=== PATIENT | female | born 1945 | race Caucasian/White ===

== ENCOUNTER 2018-09-06 11:50 | Inpatient (IN) | payer MEDICARE, MEDICAID ==
[~2018-09-06] VITALS: Ht 154.9 cm; Wt 69.9 kg
[~2018-09-06 11:50] MED LIST: ALEN70TA3 PO; ALPR0.5T PO; AMLO10TA80 PO; ASPI-1159 PO; ATEN-42 PO; ATOR20TA65 PO; BUSP-29 PO; FLUO60TA PO; FLUT1DIS6 IH; NORT50CA PO; OMEP40CA34 PO; TIOT18CA3 IH; TOPI50TA PO
[2018-09-06] MEDS ORDERED: ONDANSETRON HCL 4MG/2ML INJ IV STA (12:50)
[2018-09-06] MEDS ORDERED: MORPHINE SULFATE 4 MG/ML CPJ (NOT FOR IM USE) IV STA (12:50)
[2018-09-06] MEDS ORDERED: SODIUM CHLORIDE 0.9% 1,000 ML IV ONE (12:50)
[2018-09-06 13:19] LABS: BASOPHILS % 0.5 % (0.0-2.0); EOSINOPHILS % 2.7 % (0.0-5.0); HEMATOCRIT. 36.8 % (36.0-48.0); HEMOGLOBIN. 11.9 g/dL (12.0-16.0); MEAN CORPUSCULAR HEMOGLOBIN 29.6 pg (28.0-32.0); MEAN CORPUSCULAR VOLUME 91.3 fL (81.0-99.0); MEAN PLATELET VOLUME 7.7 fl (7.4-10.4); NEUTROPHILS % 74.8 % (40.0-76.0); PLATELET 391 x1000/uL (130-400); RED BLOOD CELL COUNT 4.03 mill/uL (4.2-5.4); RED CELL DISTRIBUTION WIDTH 14.7 % (11.6-14.6)
[2018-09-06 13:23] LABS: CHLORIDE 102 mEq/L (98-107)
[2018-09-06] MEDS: ALBUTEROL (0.083%) 2.5MG/3ML NEB HHN STA ×2 (15:10→15:20)
[2018-09-06] MEDS ORDERED: METHYLPREDNISOLONE SOD SUCC 125 MG/2 ML VIAL IV STA (15:19)
[2018-09-06] MEDS ORDERED: IPRATROPIUM BROMIDE (0.02%) 0.5MG/2.5ML NEB HHN STA (15:19)
[2018-09-06] MEDS ORDERED: KETOROLAC 15MG/ML VIAL IV ONE (15:30)
[2018-09-06] MEDS ORDERED: FUROSEMIDE 20MG/2ML VIAL IVP NR (16:15)
[2018-09-06] MEDS ORDERED: IPRATROPIUM/ALBUTEROL 0.5-3(2.5)MG/3ML NEB HHN PRN (16:30)
[2018-09-06] MEDS ORDERED: MAGNESIUM/ALUMINUM HYDROXIDE/SIMETHICONE 30ML UDC PO PRN (18:30)
[2018-09-06] MEDS ORDERED: CLONIDINE 0.1MG TABLET PO PRN (18:30)
[2018-09-06] MEDS ORDERED: ACETAMINOPHEN 325MG TABLET PO PRN (18:30)
[2018-09-06] MEDS ORDERED: DOCUSATE SODIUM 100MG CAPSULE PO PRN (18:30)
[2018-09-06 19:17] LABS: CLARITY URINE CLEAR (CLEAR); COLOR URINE YELLOW (YELLOW); KETONES URINE NEGATIVE (NEGATIVE); LEUKOCYTE ESTERASE URINE NEGATIVE (NEGATIVE); NITRITE URINE NEGATIVE (NEGATIVE); OCCULT BLOOD URINE NEGATIVE (NEGATIVE); PROTEIN URINE NEGATIVE (NEGATIVE); UROBILINOGEN URINE 0.2 E.U./dL (0.2-1.0)
[2018-09-06] MEDS: HYDROCODONE/ACETAMINOPHEN 5/325MG TABLET PO PRN (21:43)
[2018-09-07] MEDS: HYDROCODONE/APAP 7.5/325MG 1 TAB TABLET PO PRN ×2 (01:30→16:40)
[2018-09-07 03:10] VITALS: BP 138/76
[2018-09-07 04:00] VITALS: BP 138/76
[2018-09-07] MEDS ORDERED: MONT10TA24 PO (04:45)
[2018-09-07] MEDS ORDERED: ARFO15VI2 IH (04:51)
[2018-09-07] MEDS ORDERED: ALBU18HF2 IH (04:51)
[2018-09-07] MEDS ORDERED: ALPR1TAB2 PO (04:51)
[2018-09-07 07:56] LABS: HEMATOCRIT. 34.4 % (36.0-48.0); HEMOGLOBIN. 11.4 g/dL (12.0-16.0); MEAN CORPUSCULAR HEMOGLOBIN 29.9 pg (28.0-32.0); MEAN CORPUSCULAR VOLUME 90.7 fL (81.0-99.0); MEAN PLATELET VOLUME 7.5 fl (7.4-10.4); PLATELET 387 x1000/uL (130-400); RED CELL DISTRIBUTION WIDTH 14.2 % (11.6-14.6)
[2018-09-07 08:00] VITALS: BP 155/91
[2018-09-07 08:03] LABS: CHLORIDE 102 mEq/L (98-107)
[2018-09-07] MEDS ORDERED: MEDICATION NOT ON FORMULARY EA (Alprazolam (Xanax) 0.5 MG) PO PRN (09:30)
[2018-09-07] MEDS ORDERED: BUSPIRONE HCL 5 MG PO SCH (09:30)
[2018-09-07] MEDS ORDERED: ARFORMOTEROL TARTRATE 15MCG/2ML NEB NEB SCH (09:30)
[2018-09-07] MEDS ORDERED: MEDICATION NOT ON FORMULARY EA (Omeprazole 40 MG) PO SCH (09:30)
[2018-09-07] MEDS ORDERED: TOPIRAMATE PO SCH (09:30)
[2018-09-07] MEDS ORDERED: FLUOXETINE HCL 60 MG PO SCH (09:30)
[2018-09-07] MEDS ORDERED: KETOROLAC 30MG/ML VIAL IV PRN (09:45)
[2018-09-07] MEDS ORDERED: ALPRAZOLAM 0.5 MG TABLET PO PRN (10:15)
[2018-09-07] MEDS: BUSPIRONE HCL 5MG TABLET PO SCH ×2 (10:18→17:11)
[2018-09-07] MEDS: AMLODIPINE 10MG TABLET PO SCH (10:18)
[2018-09-07] MEDS: FLUOXETINE HCL 20MG CAPSULE PO SCH (10:18)
[2018-09-07] MEDS: OMEPRAZOLE 20MG CAPSULE EXTENDED RELEASE PO SCH ×2 (10:24→17:11)
[2018-09-07 11:32] LABS: PLATELET ESTIMATE NORMAL
[2018-09-07 12:00] VITALS: BP 123/73
[2018-09-07] MEDS: TOPIRAMATE 25MG TABLET PO SCH ×2 (12:31→17:11)
[2018-09-07] MEDS: KETOROLAC 15MG/ML VIAL IV PRN ×2 (12:34→22:00)
[2018-09-07 16:00] VITALS: BP 120/50
[2018-09-07] MEDS: IPRATROPIUM/ALBUTEROL 0.5-3(2.5)MG/3ML NEB HHN SCH ×2 (16:54→21:01)
[2018-09-07] MEDS: BUDESONIDE 0.5MG/2ML NEB HHN SCH ×2 (16:54→21:00)
[2018-09-07 20:00] VITALS: BP 125/71
[2018-09-07] MEDS ORDERED: ASPIRIN 81MG TABLET PO SCH (21:00)
[2018-09-07] MEDS ORDERED: NORTRIPTYLINE HCL 25MG CAPSULE PO SCH (21:00)
[2018-09-07] MEDS ORDERED: ATORVASTATIN CALCIUM 20MG TABLET PO SCH (21:00)
[2018-09-07] MEDS ORDERED: MONTELUKAST SODIUM 10MG TABLET PO SCH (21:00)
[2018-09-07] MEDS ORDERED: MEDICATION NOT ON FORMULARY EA (Atenolol 25 MG) PO SCH (21:00)
[2018-09-07] MEDS ORDERED: MEDICATION NOT ON FORMULARY EA (Nortriptyline Hcl 50 MG) PO SCH (21:00)
[2018-09-07] MEDS ORDERED: ATENOLOL 25MG TABLET PO SCH (21:00)
[2018-09-08] VITALS: BP 136/73
[2018-09-08] MEDS: IPRATROPIUM/ALBUTEROL 0.5-3(2.5)MG/3ML NEB HHN SCH ×3 (01:50→14:54)
[2018-09-08 04:00] VITALS: BP 130/72
[2018-09-08] MEDS: OMEPRAZOLE 20MG CAPSULE EXTENDED RELEASE PO SCH ×2 (07:56→18:18)
[2018-09-08 08:00] VITALS: BP 128/70
[2018-09-08 08:05] LABS: HEMATOCRIT. 32.1 % (36.0-48.0); HEMOGLOBIN. 10.4 g/dL (12.0-16.0); MEAN CORPUSCULAR HEMOGLOBIN 29.4 pg (28.0-32.0); MEAN CORPUSCULAR VOLUME 90.4 fL (81.0-99.0); MEAN PLATELET VOLUME 7.6 fl (7.4-10.4); PLATELET 390 x1000/uL (130-400); RED BLOOD CELL COUNT 3.55 mill/uL (4.2-5.4); RED CELL DISTRIBUTION WIDTH 14.4 % (11.6-14.6)
[2018-09-08 08:06] LABS: CHLORIDE 103 mEq/L (98-107)
[2018-09-08 08:14] LABS: PHOSPHORUS 3.3 mg/dL (2.5-4.9)
[2018-09-08] MEDS: BUDESONIDE 0.5MG/2ML NEB HHN SCH (08:49)
[2018-09-08] MEDS: AMLODIPINE 10MG TABLET PO SCH (09:16)
[2018-09-08] MEDS: TOPIRAMATE 25MG TABLET PO SCH ×2 (09:16→18:18)
[2018-09-08] MEDS: FLUOXETINE HCL 20MG CAPSULE PO SCH (09:16)
[2018-09-08] MEDS: KETOROLAC 15MG/ML VIAL IV PRN (09:17)
[2018-09-08] MEDS: BUSPIRONE HCL 5MG TABLET PO SCH ×2 (09:17→18:21)
[2018-09-08 10:35] LABS: PLATELET ESTIMATE NORMAL
[2018-09-08 12:00] VITALS: BP 122/68
[2018-09-08] MEDS: HYDROCODONE/ACETAMINOPHEN 5/325MG TABLET PO PRN (12:58)
[2018-09-08 16:00] VITALS: BP 99/60
== END 2018-09-08 19:50 | DRG 189 ==
LOC: ER 12:17 → 5WST 16:01 → EDBEDREQ 16:05 → EDBEDREQTM 16:05 → ENRESERV 22:28
PROVIDERS: ADMIT Family Medicine Adult Medicine; ATTEND Family Medicine Adult Medicine
DX: J96.00 Acute respiratory failure, unspecified whether with hypoxia or hypercapnia (principal); J44.1 Chronic obstructive pulmonary disease with (acute) exacerbation; S82.109A Unspecified fracture of upper end of unspecified tibia, initial encounter for closed fracture; J45.901 Unspecified asthma with (acute) exacerbation; I10 Essential (primary) hypertension; S60.222A Contusion of left hand, initial encounter; S80.02XA Contusion of left knee, initial encounter; E87.5 Hyperkalemia; E78.5 Hyperlipidemia, unspecified; D64.9 Anemia, unspecified; E78.00 Pure hypercholesterolemia, unspecified; F32.9 Major depressive disorder, single episode, unspecified; M19.90 Unspecified osteoarthritis, unspecified site; Z83.3 Family history of diabetes mellitus; Z79.82 Long term (current) use of aspirin; W18.09XA Striking against other object with subsequent fall, initial encounter; Z88.0 Allergy status to penicillin
CPT/HCPCS: 36415; 71045; 73110; 73130; 73562; 73721; 80048; 83735; 83880; 84100; 84484; 93005; 93970; 94640; 96374; 96375; 97116; 97162; 97166; 99285; J1885; J1940; J2270; J2405; J2930; J7030; J7611; J7620; J7626; L1830

== ENCOUNTER 2018-09-08 19:55 | Inpatient (IN) | payer MEDICARE, MEDICAID ==
[~2018-09-08] VITALS: Ht 154.9 cm; Wt 68.7 kg
[~2018-09-08 19:55] MED LIST changes: +ALBU18HF2 IH; -ALEN70TA3 PO; +ALPR1TAB2 PO; +ARFO15VI2 IH; +MONT10TA24 PO; -TIOT18CA3 IH
[2018-09-08 20:00] VITALS: BP 117/66
[2018-09-08 20:10] VITALS: BP 117/66
[2018-09-08 21:00] VITALS: BP 117/66
[2018-09-08] MEDS ORDERED: HYDROCODONE/APAP 7.5/325MG 1 TAB TABLET PO PRN (21:30)
[2018-09-08] MEDS ORDERED: DOCUSATE SODIUM 100MG CAPSULE PO PRN (21:30)
[2018-09-08] MEDS ORDERED: MAGNESIUM/ALUMINUM HYDROXIDE/SIMETHICONE 30ML UDC PO PRN (21:30)
[2018-09-08] MEDS ORDERED: EXCEDRIN PO PRN (21:30)
[2018-09-08] MEDS ORDERED: HYDROCODONE/ACETAMINOPHEN 5/325MG TABLET PO PRN (21:30)
[2018-09-08] MEDS ORDERED: CLONIDINE 0.1MG TABLET PO PRN (21:30)
[2018-09-08] MEDS ORDERED: ALPRAZOLAM 0.5 MG TABLET PO PRN (21:30)
[2018-09-08] MEDS: IPRATROPIUM/ALBUTEROL 0.5-3(2.5)MG/3ML NEB HHN PRN (22:11)
[2018-09-08] MEDS: ATORVASTATIN CALCIUM 20MG TABLET PO SCH (22:28)
[2018-09-08] MEDS: MONTELUKAST SODIUM 10MG TABLET PO SCH (22:28)
[2018-09-08] MEDS: ATENOLOL 25MG TABLET PO SCH (22:33)
[2018-09-08] MEDS: ASPIRIN 81MG TABLET PO SCH (23:24)
[2018-09-08] MEDS: NORTRIPTYLINE HCL 25MG CAPSULE PO SCH (23:24)
[2018-09-09] MEDS: KETOROLAC 15MG/ML VIAL IV PRN ×3 (00:50→21:59)
[2018-09-09] MEDS: IPRATROPIUM/ALBUTEROL 0.5-3(2.5)MG/3ML NEB HHN SCH ×4 (03:58→21:27)
[2018-09-09 06:00] LABS: CHLORIDE 101 mEq/L (98-107)
[2018-09-09 06:10] LABS: HEMATOCRIT. 29.3 % (36.0-48.0); HEMOGLOBIN. 9.5 g/dL (12.0-16.0); MEAN CORPUSCULAR VOLUME 89.9 fL (81.0-99.0); MEAN PLATELET VOLUME 7.4 fl (7.4-10.4); PLATELET 403 x1000/uL (130-400); RED BLOOD CELL COUNT 3.26 mill/uL (4.2-5.4); RED CELL DISTRIBUTION WIDTH 14.5 % (11.6-14.6)
[2018-09-09] MEDS: ARFORMOTEROL TARTRATE 15MCG/2ML NEB NEB SCH ×2 (07:32→21:27)
[2018-09-09] MEDS: BUDESONIDE 0.5MG/2ML NEB HHN SCH ×2 (07:33→21:27)
[2018-09-09 08:12] VITALS: BP 138/75
[2018-09-09] MEDS: TOPIRAMATE 25MG TABLET PO SCH ×2 (09:02→17:21)
[2018-09-09] MEDS: BUSPIRONE HCL 5MG TABLET PO SCH ×2 (09:02→17:21)
[2018-09-09] MEDS: FLUOXETINE HCL 20MG CAPSULE PO SCH (09:03)
[2018-09-09] MEDS: OMEPRAZOLE 20MG CAPSULE EXTENDED RELEASE PO SCH ×2 (09:03→17:21)
[2018-09-09] MEDS: AMLODIPINE 10MG TABLET PO SCH (09:04)
[2018-09-09] MEDS: ASPIRIN PO PRN (13:43)
[2018-09-09] MEDS: CAFFEINE 65 MG PO PRN (13:43)
[2018-09-09] MEDS: ACETAMINOPHEN PO PRN (13:43)
[2018-09-09] MEDS: [UNRECOGNIZED DRUG - OTHER] PO PRN (13:43)
[2018-09-09] MEDS ORDERED: BISACODYL 10MG SUPP PR PRN (13:45)
[2018-09-09] MEDS: LACTULOSE 20G/30ML UDC PO SCH ×3 (14:58→21:00)
[2018-09-09] MEDS: DOCUSATE SODIUM 100MG CAPSULE PO SCH (17:21)
[2018-09-09 20:00] VITALS: BP 123/82
[2018-09-09] MEDS: POLYETHYLENE GLYCOL 3350 (17GM) 1 DOSE PACK PO SCH (21:00)
[2018-09-09] MEDS: NORTRIPTYLINE HCL 25MG CAPSULE PO SCH (21:59)
[2018-09-09] MEDS: ATORVASTATIN CALCIUM 20MG TABLET PO SCH (21:59)
[2018-09-09] MEDS: MONTELUKAST SODIUM 10MG TABLET PO SCH (22:00)
[2018-09-09] MEDS: ASPIRIN 81MG TABLET PO SCH (22:00)
[2018-09-09] MEDS: ALPRAZOLAM 0.5 MG TABLET PO PRN (23:16)
[2018-09-09] MEDS: ATENOLOL 25MG TABLET PO SCH (23:17)
[2018-09-10] MEDS: IPRATROPIUM/ALBUTEROL 0.5-3(2.5)MG/3ML NEB HHN SCH ×3 (02:02→14:09)
[2018-09-10] MEDS: KETOROLAC 15MG/ML VIAL IV PRN ×2 (06:30→17:15)
[2018-09-10] MEDS: ARFORMOTEROL TARTRATE 15MCG/2ML NEB NEB SCH ×2 (07:54→21:00)
[2018-09-10] MEDS: BUDESONIDE 0.5MG/2ML NEB HHN SCH (07:54)
[2018-09-10 08:03] LABS: CHLORIDE 102 mEq/L (98-107)
[2018-09-10 08:09] VITALS: BP 135/63
[2018-09-10] MEDS: TOPIRAMATE 25MG TABLET PO SCH ×2 (08:50→16:57)
[2018-09-10] MEDS: AMLODIPINE 10MG TABLET PO SCH (08:50)
[2018-09-10] MEDS: FLUOXETINE HCL 20MG CAPSULE PO SCH (08:50)
[2018-09-10] MEDS: BUSPIRONE HCL 5MG TABLET PO SCH ×2 (08:50→16:57)
[2018-09-10] MEDS: OMEPRAZOLE 20MG CAPSULE EXTENDED RELEASE PO SCH ×2 (08:51→16:58)
[2018-09-10] MEDS: DOCUSATE SODIUM 100MG CAPSULE PO SCH ×2 (08:51→16:58)
[2018-09-10 13:17] LABS: PLATELET ESTIMATE NORMAL
[2018-09-10 18:50] LABS: CLARITY URINE CLEAR (CLEAR); COLOR URINE YELLOW (YELLOW); KETONES URINE NEGATIVE (NEGATIVE); LEUKOCYTE ESTERASE URINE NEGATIVE (NEGATIVE); NITRITE URINE NEGATIVE (NEGATIVE); OCCULT BLOOD URINE NEGATIVE (NEGATIVE); PH URINE 6.5 (4.5-8.0); PROTEIN URINE NEGATIVE (NEGATIVE); SPECIFIC GRAVITY URINE 1.009 (1.005-1.030); UROBILINOGEN URINE 0.2 E.U./dL (0.2-1.0)
[2018-09-10 20:00] VITALS: BP 116/68
[2018-09-10] MEDS: POLYETHYLENE GLYCOL 3350 (17GM) 1 DOSE PACK PO SCH (21:00)
[2018-09-10] MEDS: MONTELUKAST SODIUM 10MG TABLET PO SCH (21:43)
[2018-09-10] MEDS: ATENOLOL 25MG TABLET PO SCH (21:43)
[2018-09-10] MEDS: NORTRIPTYLINE HCL 25MG CAPSULE PO SCH (21:43)
[2018-09-10] MEDS: ASPIRIN 81MG TABLET PO SCH (21:43)
[2018-09-10] MEDS: ATORVASTATIN CALCIUM 20MG TABLET PO SCH (21:43)
[2018-09-10] MEDS: ALPRAZOLAM 0.5 MG TABLET PO PRN (23:46)
[2018-09-11] MEDS: IPRATROPIUM/ALBUTEROL 0.5-3(2.5)MG/3ML NEB HHN SCH ×5 (02:34→21:35)
[2018-09-11] MEDS: BUDESONIDE 0.5MG/2ML NEB HHN SCH ×2 (02:38→21:35)
[2018-09-11] MEDS: KETOROLAC 15MG/ML VIAL IV PRN ×3 (03:07→17:00)
[2018-09-11 06:38] LABS: HEMATOCRIT. 29.7 % (36.0-48.0); MEAN CORPUSCULAR HEMOGLOBIN 30.2 pg (28.0-32.0); MEAN CORPUSCULAR VOLUME 89.7 fL (81.0-99.0); MEAN PLATELET VOLUME 7.1 fl (7.4-10.4); PLATELET 478 x1000/uL (130-400); RED BLOOD CELL COUNT 3.31 mill/uL (4.2-5.4); RED CELL DISTRIBUTION WIDTH 14.4 % (11.6-14.6)
[2018-09-11 06:56] LABS: CHLORIDE 101 mEq/L (98-107)
[2018-09-11 07:24] LABS: PHOSPHORUS 3.5 mg/dL (2.5-4.9)
[2018-09-11 07:25] LABS: LDL CHOLESTEROL 74 mg/dL (5-100)
[2018-09-11 07:27] LABS: HDL CHOLESTEROL 59 mg/dL (40-59); TOTAL IRON BINDING CAPACITY 247 ug/dL (250-450)
[2018-09-11 07:35] LABS: FOLIC ACID (FOLATE) SERUM 10.5 ng/mL (>5.38)
[2018-09-11] MEDS: OMEPRAZOLE 20MG CAPSULE EXTENDED RELEASE PO SCH ×2 (07:54→16:58)
[2018-09-11] MEDS: FLUOXETINE HCL 20MG CAPSULE PO SCH (07:55)
[2018-09-11] MEDS: AMLODIPINE 10MG TABLET PO SCH (07:55)
[2018-09-11] MEDS: TOPIRAMATE 25MG TABLET PO SCH ×2 (07:55→16:58)
[2018-09-11] MEDS: BUSPIRONE HCL 5MG TABLET PO SCH ×2 (07:55→16:58)
[2018-09-11] MEDS: DOCUSATE SODIUM 100MG CAPSULE PO SCH ×2 (07:58→16:59)
[2018-09-11 08:36] VITALS: BP 118/71
[2018-09-11] MEDS ORDERED: CYANOCOBALAMIN 1000MCG/ML VIAL IM SCH (11:30)
[2018-09-11] MEDS ORDERED: FERROUS SULFATE 325MG TABLET PO SCH (13:00)
[2018-09-11 13:34] LABS: PLATELET ESTIMATE INCREASED
[2018-09-11] MEDS ORDERED: IRON SUCROSE COMPLEX 100 MG in SODIUM CHLORIDE 0.9% 100 ML IV SCH (15:15)
[2018-09-11 20:00] VITALS: BP 109/62
[2018-09-11] MEDS: NORTRIPTYLINE HCL 25MG CAPSULE PO SCH (20:49)
[2018-09-11] MEDS: ATORVASTATIN CALCIUM 20MG TABLET PO SCH (20:49)
[2018-09-11] MEDS: ASPIRIN 81MG TABLET PO SCH (20:49)
[2018-09-11] MEDS: MONTELUKAST SODIUM 10MG TABLET PO SCH (20:49)
[2018-09-11] MEDS: ACETAMINOPHEN 325MG TABLET PO PRN (20:50)
[2018-09-11] MEDS: ATENOLOL 25MG TABLET PO SCH (20:53)
[2018-09-11] MEDS: POLYETHYLENE GLYCOL 3350 (17GM) 1 DOSE PACK PO SCH (20:53)
[2018-09-11] MEDS: IRON SUCROSE COMPLEX 100 MG in SODIUM CHLORIDE 0.9% 100 ML IV SCH ×2 (22:26→22:39)
[2018-09-11] MEDS: ALPRAZOLAM 0.5 MG TABLET PO PRN (22:47)
[2018-09-12] MEDS: IPRATROPIUM/ALBUTEROL 0.5-3(2.5)MG/3ML NEB HHN SCH ×3 (03:04→22:15)
[2018-09-12 07:24] LABS: T4 FREE 0.85 ng/dL (0.76-1.46)
[2018-09-12 08:00] VITALS: BP 132/72
[2018-09-12] MEDS: OMEPRAZOLE 20MG CAPSULE EXTENDED RELEASE PO SCH ×2 (10:20→18:07)
[2018-09-12] MEDS: BUSPIRONE HCL 5MG TABLET PO SCH ×2 (10:20→18:06)
[2018-09-12] MEDS: FLUOXETINE HCL 20MG CAPSULE PO SCH (10:20)
[2018-09-12] MEDS: TOPIRAMATE 25MG TABLET PO SCH ×2 (10:21→18:07)
[2018-09-12] MEDS: DOCUSATE SODIUM 100MG CAPSULE PO SCH ×2 (10:21→17:00)
[2018-09-12] MEDS: AMLODIPINE 10MG TABLET PO SCH (10:22)
[2018-09-12] MEDS: ACETAMINOPHEN 325MG TABLET PO PRN ×2 (11:15→21:29)
[2018-09-12] MEDS: IPRATROPIUM/ALBUTEROL 0.5-3(2.5)MG/3ML NEB HHN PRN (12:17)
[2018-09-12 20:00] VITALS: BP 135/68
[2018-09-12] MEDS: POLYETHYLENE GLYCOL 3350 (17GM) 1 DOSE PACK PO SCH (21:00)
[2018-09-12] MEDS: IRON SUCROSE COMPLEX 100 MG in SODIUM CHLORIDE 0.9% 100 ML IV SCH (21:27)
[2018-09-12] MEDS: NORTRIPTYLINE HCL 25MG CAPSULE PO SCH (21:28)
[2018-09-12] MEDS: ATENOLOL 25MG TABLET PO SCH (21:28)
[2018-09-12] MEDS: MONTELUKAST SODIUM 10MG TABLET PO SCH (21:28)
[2018-09-12] MEDS: ASPIRIN 81MG TABLET PO SCH (21:28)
[2018-09-12] MEDS: ATORVASTATIN CALCIUM 20MG TABLET PO SCH (21:29)
[2018-09-12] MEDS: ARFORMOTEROL TARTRATE 15MCG/2ML NEB NEB SCH (22:15)
[2018-09-12] MEDS: ALPRAZOLAM 0.5 MG TABLET PO PRN (23:34)
[2018-09-13] MEDS: BUDESONIDE 0.5MG/2ML NEB HHN SCH ×2 (03:27→21:32)
[2018-09-13] MEDS: IPRATROPIUM/ALBUTEROL 0.5-3(2.5)MG/3ML NEB HHN SCH ×3 (03:27→21:33)
[2018-09-13 06:20] LABS: HEMATOCRIT. 31.1 % (36.0-48.0); HEMOGLOBIN. 10.1 g/dL (12.0-16.0); MEAN CORPUSCULAR HEMOGLOBIN 29.5 pg (28.0-32.0); MEAN CORPUSCULAR VOLUME 90.6 fL (81.0-99.0); MEAN PLATELET VOLUME 7.1 fl (7.4-10.4); PLATELET 527 x1000/uL (130-400); RED BLOOD CELL COUNT 3.43 mill/uL (4.2-5.4); RED CELL DISTRIBUTION WIDTH 14.6 % (11.6-14.6)
[2018-09-13 06:40] LABS: CHLORIDE 101 mEq/L (98-107)
[2018-09-13 07:56] VITALS: BP 123/70
[2018-09-13] MEDS: ARFORMOTEROL TARTRATE 15MCG/2ML NEB NEB SCH ×2 (08:20→21:45)
[2018-09-13] MEDS: OMEPRAZOLE 20MG CAPSULE EXTENDED RELEASE PO SCH ×2 (08:45→17:10)
[2018-09-13] MEDS: FLUOXETINE HCL 20MG CAPSULE PO SCH (08:46)
[2018-09-13] MEDS: AMLODIPINE 10MG TABLET PO SCH (08:47)
[2018-09-13] MEDS: TOPIRAMATE 25MG TABLET PO SCH ×2 (08:47→17:10)
[2018-09-13] MEDS: BUSPIRONE HCL 5MG TABLET PO SCH ×2 (08:47→17:11)
[2018-09-13] MEDS: DOCUSATE SODIUM 100MG CAPSULE PO SCH ×2 (08:47→17:11)
[2018-09-13 15:09] LABS: PLATELET ESTIMATE INCREASED
[2018-09-13] MEDS ORDERED: HYDROCODONE/ACETAMINOPHEN 5/325MG TABLET PO PRN ×2 (17:00→17:30)
[2018-09-13] MEDS ORDERED: HYDROCODONE/APAP 7.5/325MG 1 TAB TABLET PO PRN (17:30)
[2018-09-13 20:00] VITALS: BP 123/72
[2018-09-13] MEDS: POLYETHYLENE GLYCOL 3350 (17GM) 1 DOSE PACK PO SCH (20:28)
[2018-09-13] MEDS: IRON SUCROSE COMPLEX 100 MG in SODIUM CHLORIDE 0.9% 100 ML IV SCH (21:40)
[2018-09-13] MEDS: ATORVASTATIN CALCIUM 20MG TABLET PO SCH (21:40)
[2018-09-13] MEDS: NORTRIPTYLINE HCL 25MG CAPSULE PO SCH (21:40)
[2018-09-13] MEDS: ASPIRIN 81MG TABLET PO SCH (21:41)
[2018-09-13] MEDS: MONTELUKAST SODIUM 10MG TABLET PO SCH (21:41)
[2018-09-13] MEDS: ATENOLOL 25MG TABLET PO SCH (21:41)
[2018-09-13] MEDS: ACETAMINOPHEN 325MG TABLET PO PRN (21:41)
[2018-09-13] MEDS: ALPRAZOLAM 0.5 MG TABLET PO PRN (23:37)
[2018-09-14] MEDS: BUDESONIDE 0.5MG/2ML NEB HHN SCH ×2 (07:44→21:04)
[2018-09-14] MEDS: ARFORMOTEROL TARTRATE 15MCG/2ML NEB NEB SCH ×2 (07:44→21:25)
[2018-09-14] MEDS: IPRATROPIUM/ALBUTEROL 0.5-3(2.5)MG/3ML NEB HHN SCH (07:46)
[2018-09-14 08:09] VITALS: BP 126/69
[2018-09-14] MEDS: TOPIRAMATE 25MG TABLET PO SCH ×2 (08:12→17:52)
[2018-09-14] MEDS: OMEPRAZOLE 20MG CAPSULE EXTENDED RELEASE PO SCH ×2 (08:12→17:52)
[2018-09-14] MEDS: DOCUSATE SODIUM 100MG CAPSULE PO SCH ×2 (08:12→17:52)
[2018-09-14] MEDS: FLUOXETINE HCL 20MG CAPSULE PO SCH (08:12)
[2018-09-14] MEDS: BUSPIRONE HCL 5MG TABLET PO SCH ×2 (08:13→17:52)
[2018-09-14] MEDS: AMLODIPINE 10MG TABLET PO SCH (08:14)
[2018-09-14] MEDS ORDERED: HYDROCODONE/ACETAMINOPHEN 5/325MG TABLET PO PRN (11:00)
[2018-09-14] MEDS: IPRATROPIUM/ALBUTEROL 0.5-3(2.5)MG/3ML NEB HHN PRN ×2 (16:33→21:04)
[2018-09-14 20:00] VITALS: BP 125/71
[2018-09-14] MEDS: ASPIRIN 81MG TABLET PO SCH (22:05)
[2018-09-14] MEDS: POLYETHYLENE GLYCOL 3350 (17GM) 1 DOSE PACK PO SCH (22:05)
[2018-09-14] MEDS: IRON SUCROSE COMPLEX 100 MG in SODIUM CHLORIDE 0.9% 100 ML IV SCH (22:05)
[2018-09-14] MEDS: ATORVASTATIN CALCIUM 20MG TABLET PO SCH (22:06)
[2018-09-14] MEDS: ATENOLOL 25MG TABLET PO SCH (22:06)
[2018-09-14] MEDS: NORTRIPTYLINE HCL 25MG CAPSULE PO SCH (22:06)
[2018-09-14] MEDS: MONTELUKAST SODIUM 10MG TABLET PO SCH (22:06)
[2018-09-14] MEDS: ACETAMINOPHEN 325MG TABLET PO PRN (22:29)
[2018-09-14] MEDS: ALPRAZOLAM 0.5 MG TABLET PO PRN (23:32)
[2018-09-15] MEDS: IPRATROPIUM/ALBUTEROL 0.5-3(2.5)MG/3ML NEB HHN PRN ×5 (01:57→20:54)
[2018-09-15 06:24] LABS: HEMATOCRIT. 31.9 % (36.0-48.0); HEMOGLOBIN. 10.5 g/dL (12.0-16.0); MEAN CORPUSCULAR HEMOGLOBIN 30.1 pg (28.0-32.0); MEAN CORPUSCULAR VOLUME 90.9 fL (81.0-99.0); PLATELET 538 x1000/uL (130-400); RED BLOOD CELL COUNT 3.51 mill/uL (4.2-5.4); RED CELL DISTRIBUTION WIDTH 14.5 % (11.6-14.6)
[2018-09-15 06:34] LABS: CHLORIDE 97 mEq/L (98-107)
[2018-09-15] MEDS: BUDESONIDE 0.5MG/2ML NEB HHN SCH ×2 (07:22→20:54)
[2018-09-15] MEDS: ARFORMOTEROL TARTRATE 15MCG/2ML NEB NEB SCH ×2 (07:22→21:11)
[2018-09-15 08:00] VITALS: BP 130/75
[2018-09-15] MEDS: OMEPRAZOLE 20MG CAPSULE EXTENDED RELEASE PO SCH ×2 (08:38→17:34)
[2018-09-15] MEDS: AMLODIPINE 10MG TABLET PO SCH (08:39)
[2018-09-15] MEDS: FLUOXETINE HCL 20MG CAPSULE PO SCH (08:39)
[2018-09-15] MEDS: TOPIRAMATE 25MG TABLET PO SCH ×2 (08:39→17:35)
[2018-09-15] MEDS: BUSPIRONE HCL 5MG TABLET PO SCH ×2 (08:40→17:35)
[2018-09-15] MEDS: DOCUSATE SODIUM 100MG CAPSULE PO SCH ×2 (08:40→17:00)
[2018-09-15] MEDS: ACETAMINOPHEN PO PRN (12:02)
[2018-09-15] MEDS: [UNRECOGNIZED DRUG - OTHER] PO PRN (12:02)
[2018-09-15] MEDS: CAFFEINE 65 MG PO PRN (12:02)
[2018-09-15] MEDS: ASPIRIN PO PRN (12:02)
[2018-09-15 13:14] LABS: PLATELET ESTIMATE INCREASED
[2018-09-15 20:00] VITALS: BP 124/69
[2018-09-15] MEDS: POLYETHYLENE GLYCOL 3350 (17GM) 1 DOSE PACK PO SCH (22:25)
[2018-09-15] MEDS: NORTRIPTYLINE HCL 25MG CAPSULE PO SCH (22:25)
[2018-09-15] MEDS: IRON SUCROSE COMPLEX 100 MG in SODIUM CHLORIDE 0.9% 100 ML IV SCH (22:25)
[2018-09-15] MEDS: ATENOLOL 25MG TABLET PO SCH (22:26)
[2018-09-15] MEDS: ASPIRIN 81MG TABLET PO SCH (22:26)
[2018-09-15] MEDS: MONTELUKAST SODIUM 10MG TABLET PO SCH (22:26)
[2018-09-15] MEDS: ATORVASTATIN CALCIUM 20MG TABLET PO SCH (22:27)
[2018-09-15] MEDS: ALPRAZOLAM 0.5 MG TABLET PO PRN (23:06)
[2018-09-16 06:55] LABS: CHLORIDE 96 mEq/L (98-107); HEMATOCRIT. 30.9 % (36.0-48.0); HEMOGLOBIN. 10.3 g/dL (12.0-16.0); MEAN CORPUSCULAR HEMOGLOBIN 29.9 pg (28.0-32.0); MEAN CORPUSCULAR VOLUME 89.6 fL (81.0-99.0); PLATELET 562 x1000/uL (130-400); RED BLOOD CELL COUNT 3.44 mill/uL (4.2-5.4); RED CELL DISTRIBUTION WIDTH 14.6 % (11.6-14.6)
[2018-09-16] MEDS: SODIUM CHLORIDE 0.9% 1,000 ML IV SCH (07:30)
[2018-09-16 08:11] VITALS: BP 129/72
[2018-09-16] MEDS: LEVOTHYROXINE SODIUM 25MCG TABLET PO SCH (09:15)
[2018-09-16] MEDS: OMEPRAZOLE 20MG CAPSULE EXTENDED RELEASE PO SCH ×2 (09:15→16:49)
[2018-09-16] MEDS: AMLODIPINE 10MG TABLET PO SCH (09:16)
[2018-09-16] MEDS: DOCUSATE SODIUM 100MG CAPSULE PO SCH ×2 (09:16→16:49)
[2018-09-16] MEDS: TOPIRAMATE 25MG TABLET PO SCH ×2 (09:16→16:53)
[2018-09-16] MEDS: BUSPIRONE HCL 5MG TABLET PO SCH ×2 (09:16→16:49)
[2018-09-16] MEDS ORDERED: LEVOTHYROXINE SODIUM 25MCG TABLET PO SCH (11:00)
[2018-09-16] MEDS: ACETAMINOPHEN 325MG TABLET PO PRN (11:37)
[2018-09-16 13:06] LABS: 25-HYDROXY VITAMIN D3 12 ng/mL (.)
[2018-09-16 14:06] LABS: PLATELET ESTIMATE INCREASED
[2018-09-16] MEDS: BUDESONIDE 0.5MG/2ML NEB HHN SCH ×2 (15:12→20:04)
[2018-09-16] MEDS: ARFORMOTEROL TARTRATE 15MCG/2ML NEB NEB SCH (15:12)
[2018-09-16 20:00] VITALS: BP 114/66
[2018-09-16] MEDS: IPRATROPIUM/ALBUTEROL 0.5-3(2.5)MG/3ML NEB HHN PRN (20:04)
[2018-09-16] MEDS: POLYETHYLENE GLYCOL 3350 (17GM) 1 DOSE PACK PO SCH (21:39)
[2018-09-16] MEDS: ASPIRIN 81MG TABLET PO SCH (21:40)
[2018-09-16] MEDS: ATENOLOL 25MG TABLET PO SCH (21:40)
[2018-09-16] MEDS: MONTELUKAST SODIUM 10MG TABLET PO SCH (21:40)
[2018-09-16] MEDS: ATORVASTATIN CALCIUM 20MG TABLET PO SCH (21:41)
[2018-09-16] MEDS: ALPRAZOLAM 0.5 MG TABLET PO PRN (22:51)
[2018-09-17] MEDS: ARFORMOTEROL TARTRATE 15MCG/2ML NEB NEB SCH ×2 (00:42→09:49)
[2018-09-17] MEDS: CAFFEINE 65 MG PO PRN (02:56)
[2018-09-17] MEDS: [UNRECOGNIZED DRUG - OTHER] PO PRN (02:56)
[2018-09-17] MEDS: ACETAMINOPHEN PO PRN (02:56)
[2018-09-17] MEDS: ASPIRIN PO PRN (02:56)
[2018-09-17 05:52] LABS: HEMATOCRIT. 30.2 % (36.0-48.0); HEMOGLOBIN. 9.9 g/dL (12.0-16.0); MEAN CORPUSCULAR HEMOGLOBIN 29.8 pg (28.0-32.0); MEAN CORPUSCULAR VOLUME 90.7 fL (81.0-99.0); PLATELET 537 x1000/uL (130-400); RED BLOOD CELL COUNT 3.33 mill/uL (4.2-5.4); RED CELL DISTRIBUTION WIDTH 14.6 % (11.6-14.6)
[2018-09-17] MEDS: SODIUM CHLORIDE 0.9% 1,000 ML IV SCH (06:53)
[2018-09-17] MEDS: LEVOTHYROXINE SODIUM 25MCG TABLET PO SCH (06:53)
[2018-09-17 07:01] LABS: CHLORIDE 101 mEq/L (98-107)
[2018-09-17 07:30] VITALS: BP 127/67
[2018-09-17] MEDS ORDERED: ERGOCALCIFEROL 50000UNITS CAPSULE PO SCH (09:14)
[2018-09-17] MEDS: BUDESONIDE 0.5MG/2ML NEB HHN SCH (09:19)
[2018-09-17] MEDS: BUSPIRONE HCL 5MG TABLET PO SCH (09:46)
[2018-09-17] MEDS: AMLODIPINE 10MG TABLET PO SCH (09:46)
[2018-09-17] MEDS: DOCUSATE SODIUM 100MG CAPSULE PO SCH (09:46)
[2018-09-17] MEDS: TOPIRAMATE 25MG TABLET PO SCH (09:47)
[2018-09-17] MEDS: OMEPRAZOLE 20MG CAPSULE EXTENDED RELEASE PO SCH (09:53)
[2018-09-17 13:16] VITALS: BP 118/63
[2018-09-17 13:26] VITALS: BP 118/63
[2018-09-17 15:53] LABS: PLATELET ESTIMATE INCREASED
== END 2018-09-17 15:00 | disposition home health service (06) | DRG 563 ==
PROVIDERS: ADMIT Physical Medicine & Rehabilitation Spinal Cord Injury Medicine; ATTEND Family Medicine Adult Medicine
DX: S82.102A Unspecified fracture of upper end of left tibia, initial encounter for closed fracture (principal); S82.002A Unspecified fracture of left patella, initial encounter for closed fracture; J44.1 Chronic obstructive pulmonary disease with (acute) exacerbation; E46 Unspecified protein-calorie malnutrition; E87.1 Hypo-osmolality and hyponatremia; S60.222A Contusion of left hand, initial encounter; E61.1 Iron deficiency; D64.9 Anemia, unspecified; E78.00 Pure hypercholesterolemia, unspecified; E78.5 Hyperlipidemia, unspecified; F32.9 Major depressive disorder, single episode, unspecified; I10 Essential (primary) hypertension; W01.0XXA Fall on same level from slipping, tripping and stumbling without subsequent striking against object, initial encounter; Y93.01 Activity, walking, marching and hiking; Y92.89 Other specified places as the place of occurrence of the external cause; Y99.8 Other external cause status; G43.909 Migraine, unspecified, not intractable, without status migrainosus; R53.81 Other malaise
CPT/HCPCS: 36415; 73100; 80048; 80061; 82306; 82533; 82607; 82728; 82746; 83036; 83540; 83550; 83735; 83930; 83935; 84100; 84134; 84300; 84439; 84443; 84481; 84550; 93970; 94640; 97110; 97116; 97150; 97162; 97166; 97530; 97535; C1893; J1885; J3420; J7030; J7040; J7050; J7620; J7626; L1830

== ENCOUNTER 2019-03-09 22:21 | Inpatient (IN) | payer MEDICARE, MEDICAID ==
[~2019-03-09] VITALS: Ht 154.9 cm; Wt 70.8 kg
[~2019-03-09 22:21] MED LIST changes: -ASPI-1159 PO; +ASPI-1393 PO
[2019-03-09] MEDS ORDERED: ALBUTEROL (0.083%) 2.5MG/3ML NEB HHN STA (22:59)
[2019-03-09] MEDS ORDERED: METHYLPREDNISOLONE SOD SUCC 125 MG/2 ML VIAL IV STA (22:59)
[2019-03-09] MEDS ORDERED: IPRATROPIUM BROMIDE (0.02%) 0.5MG/2.5ML NEB HHN STA (22:59)
[2019-03-09] MEDS ORDERED: MAGNESIUM 2 G PREMIX 50 ML IV STA (22:59)
[2019-03-09 23:06] LABS: BASOPHILS % 0.5 % (0.0-2.0); HEMATOCRIT. 36.6 % (36.0-48.0); HEMOGLOBIN. 12.4 g/dL (12.0-16.0); LYMPHOCYTES % 12.8 % (20.0-50.0); MEAN CORPUSCULAR HEMOGLOBIN 32.7 pg (28.0-32.0); MEAN CORPUSCULAR VOLUME 96.5 fL (81.0-99.0); MEAN PLATELET VOLUME 7.1 fl (7.4-10.4); MONOCYTES % 7.5 % (2.0-8.0); NEUTROPHILS % 77.2 % (40.0-76.0); PLATELET 348 x1000/uL (130-400); RED BLOOD CELL COUNT 3.79 mill/uL (4.2-5.4)
[2019-03-09 23:12] LABS: CHLORIDE 103 mEq/L (98-107)
[2019-03-09] MEDS ORDERED: ALBUTEROL (0.5%) 2.5MG/0.5ML NEB HHN ONE (23:12)
[2019-03-09] MEDS ORDERED: IPRATROPIUM BROMIDE (0.02%) 0.5MG/2.5ML NEB ONE (23:12)
[2019-03-09] MEDS ORDERED: LEVOFLOXACIN 500MG PREMIX 100 ML IV ONE (23:30)
[2019-03-10] MEDS ORDERED: IPRATROPIUM/ALBUTEROL 0.5-3(2.5)MG/3ML NEB HHN PRN
[2019-03-10] MEDS ORDERED: MAGNESIUM/ALUMINUM HYDROXIDE/SIMETHICONE 30ML UDC PO PRN
[2019-03-10] MEDS ORDERED: CLONIDINE 0.1MG TABLET PO PRN
[2019-03-10] MEDS ORDERED: GUAIFENESIN 200MG/10ML SUGAR FREE UDC PO PRN
[2019-03-10] MEDS ORDERED: DOCUSATE SODIUM 100MG CAPSULE PO PRN
[2019-03-10] MEDS ORDERED: DIPHENHYDRAMINE 50MG/ML VIAL IV PRN
[2019-03-10] MEDS ORDERED: NA PHOS,M-B/NA PHOS,DI-BA ENEMA 118ML PR PRN
[2019-03-10] MEDS ORDERED: SODIUM CHLORIDE 0.9% 1,000 ML IV ONE (00:38)
[2019-03-10] MEDS: ACETAMINOPHEN 325MG TABLET PO PRN ×2 (03:30→09:16)
[2019-03-10] MEDS ORDERED: LEVOFLOXACIN 500MG PREMIX 100 ML IV SCH ×3 (03:45→23:00)
[2019-03-10 03:47] VITALS: BP 117/68
[2019-03-10] MEDS ORDERED: TOPI50TA24 PO (04:45)
[2019-03-10] MEDS ORDERED: ASPI-1158 PO (04:45)
[2019-03-10] MEDS ORDERED: LEVO25TA7 PO (04:45)
[2019-03-10] MEDS ORDERED: FLUO40CA8 PO (04:45)
[2019-03-10] MEDS ORDERED: ATEN-42 PO (04:45)
[2019-03-10] MEDS ORDERED: OMEP20CA5 PO (04:45)
[2019-03-10] MEDS ORDERED: NORT25CA PO (04:45)
[2019-03-10] MEDS ORDERED: ALPR1TAB2 PO (04:45)
[2019-03-10] MEDS ORDERED: DICY20TA11 PO (04:45)
[2019-03-10] MEDS ORDERED: MONT10TA24 PO (04:45)
[2019-03-10] MEDS ORDERED: RANI150T7 PO (04:45)
[2019-03-10] MEDS ORDERED: FLUO90CA4 PO (04:45)
[2019-03-10] MEDS ORDERED: ATOR20TA65 PO (04:45)
[2019-03-10] MEDS ORDERED: BUSP10TA3 PO (04:45)
[2019-03-10] MEDS ORDERED: AMLO10TA4 PO (04:45)
[2019-03-10] MEDS ORDERED: RANI15SY PO (04:45)
[2019-03-10] MEDS ORDERED: METHYLPREDNISOLONE SOD SUCC 125 MG/2 ML VIAL IV SCH ×2 (06:00)
[2019-03-10] MEDS ORDERED: IPRATROPIUM/ALBUTEROL 0.5-3(2.5)MG/3ML NEB NEB PRN ×2 (06:00)
[2019-03-10 06:54] VITALS: BP 117/68
[2019-03-10] MEDS: PANTOPRAZOLE SODIUM 40 MG/VIAL IV SCH (08:55)
[2019-03-10] MEDS ORDERED: PANTOPRAZOLE SODIUM 40 MG/VIAL IV SCH (09:00)
[2019-03-10] MEDS: ASPIRIN 81MG EC TABLET PO SCH (11:35)
[2019-03-10] MEDS: AMLODIPINE 10MG TABLET PO SCH (11:35)
[2019-03-10] MEDS: LEVOTHYROXINE SODIUM 25MCG TABLET PO SCH (11:36)
[2019-03-10 12:28] VITALS: BP 138/59
[2019-03-10] MEDS: METHYLPREDNISOLONE SOD SUCC 40 MG/ML VIAL IV SCH ×2 (13:09→20:53)
[2019-03-10 15:54] VITALS: BP 145/69
[2019-03-10] MEDS: IPRATROPIUM/ALBUTEROL 0.5-3(2.5)MG/3ML NEB HHN SCH ×3 (15:56→20:29)
[2019-03-10 16:24] LABS: CLARITY URINE CLEAR (CLEAR); COLOR URINE YELLOW (YELLOW); KETONES URINE NEGATIVE (NEGATIVE); LEUKOCYTE ESTERASE URINE NEGATIVE (NEGATIVE); NITRITE URINE NEGATIVE (NEGATIVE); OCCULT BLOOD URINE NEGATIVE (NEGATIVE); PH URINE 5.5 (4.5-8.0); PROTEIN URINE TRACE (NEGATIVE); SPECIFIC GRAVITY URINE 1.018 (1.005-1.030); UROBILINOGEN URINE 0.2 E.U./dL (0.2-1.0)
[2019-03-10] MEDS: HYDROCODONE/ACETAMINOPHEN 5/325MG TABLET PO PRN (17:46)
[2019-03-10] MEDS: ONDANSETRON HCL 4MG/2ML INJ IV PRN (17:46)
[2019-03-10] MEDS: NYSTATIN 100,000 UNITS/ML 5ML UDC SSW SCH (18:52)
[2019-03-10 19:22] LABS: HEMATOCRIT. 34.9 % (36.0-48.0); HEMOGLOBIN. 11.5 g/dL (12.0-16.0); MEAN CORPUSCULAR HEMOGLOBIN 31.2 pg (28.0-32.0); MEAN CORPUSCULAR VOLUME 94.8 fL (81.0-99.0); MEAN PLATELET VOLUME 7.1 fl (7.4-10.4); PLATELET 334 x1000/uL (130-400); RED BLOOD CELL COUNT 3.68 mill/uL (4.2-5.4); RED CELL DISTRIBUTION WIDTH 13.6 % (11.6-14.6)
[2019-03-10 19:28] LABS: CHLORIDE 97 mEq/L (98-107)
[2019-03-10 19:35] LABS: PHOSPHORUS 2.4 mg/dL (2.5-4.9)
[2019-03-10 19:47] LABS: PLATELET ESTIMATE NORMAL
[2019-03-10 20:00] VITALS: BP 139/71
[2019-03-10] MEDS: ATORVASTATIN CALCIUM 20MG TABLET PO SCH (20:53)
[2019-03-10 23:57] VITALS: BP 134/68
[2019-03-11] MEDS: IPRATROPIUM/ALBUTEROL 0.5-3(2.5)MG/3ML NEB HHN SCH ×6 (00:17→21:24)
[2019-03-11] MEDS: ZOLPIDEM TARTRATE 5MG TABLET PO PRN (01:08)
[2019-03-11] MEDS: NYSTATIN 100,000 UNITS/ML 5ML UDC SSW SCH ×4 (01:08→17:43)
[2019-03-11] MEDS: ONDANSETRON HCL 4MG/2ML INJ IV PRN ×3 (01:08→21:13)
[2019-03-11 04:00] VITALS: BP 142/72
[2019-03-11] MEDS: METHYLPREDNISOLONE SOD SUCC 40 MG/ML VIAL IV SCH ×3 (04:58→21:00)
[2019-03-11] MEDS: LEVOTHYROXINE SODIUM 25MCG TABLET PO SCH (06:02)
[2019-03-11 08:00] VITALS: BP 140/62
[2019-03-11] MEDS: PANTOPRAZOLE SODIUM 40 MG/VIAL IV SCH (08:46)
[2019-03-11] MEDS: ASPIRIN 81MG EC TABLET PO SCH (08:46)
[2019-03-11] MEDS: BUSPIRONE HCL 10MG TABLET PO SCH (08:47)
[2019-03-11] MEDS: AMLODIPINE 10MG TABLET PO SCH (08:47)
[2019-03-11] MEDS: ATENOLOL 25MG TABLET PO SCH (08:47)
[2019-03-11] MEDS: NORTRIPTYLINE HCL 25MG CAPSULE PO SCH (08:47)
[2019-03-11] MEDS: MONTELUKAST SODIUM 10MG TABLET PO SCH (08:47)
[2019-03-11 12:00] VITALS: BP 134/74
[2019-03-11 16:00] VITALS: BP_SYST 134; BP_SYST 136; BP_DIAS 73; BP_DIAS 74
[2019-03-11 20:00] VITALS: BP 127/65
[2019-03-11] MEDS: HYDROCODONE/ACETAMINOPHEN 5/325MG TABLET PO PRN (20:35)
[2019-03-11] MEDS: ATORVASTATIN CALCIUM 20MG TABLET PO SCH (20:41)
[2019-03-12] VITALS: BP 136/75
[2019-03-12] MEDS: IPRATROPIUM/ALBUTEROL 0.5-3(2.5)MG/3ML NEB HHN SCH ×6 (00:31→21:24)
[2019-03-12] MEDS: ZOLPIDEM TARTRATE 5MG TABLET PO PRN (03:02)
[2019-03-12] MEDS: NYSTATIN 100,000 UNITS/ML 5ML UDC SSW SCH ×4 (03:02→17:14)
[2019-03-12] MEDS: METHYLPREDNISOLONE SOD SUCC 40 MG/ML VIAL IV SCH ×3 (03:29→20:10)
[2019-03-12 04:00] VITALS: BP 128/78
[2019-03-12] MEDS: LEVOTHYROXINE SODIUM 25MCG TABLET PO SCH (06:10)
[2019-03-12 07:26] LABS: HEMATOCRIT. 33.1 % (36.0-48.0); HEMOGLOBIN. 11.2 g/dL (12.0-16.0); MEAN CORPUSCULAR HEMOGLOBIN 31.5 pg (28.0-32.0); MEAN CORPUSCULAR VOLUME 93.3 fL (81.0-99.0); MEAN PLATELET VOLUME 7.5 fl (7.4-10.4); PLATELET 379 x1000/uL (130-400); RED BLOOD CELL COUNT 3.54 mill/uL (4.2-5.4); RED CELL DISTRIBUTION WIDTH 13.5 % (11.6-14.6)
[2019-03-12 07:30] VITALS: BP 123/64
[2019-03-12 07:37] LABS: CHLORIDE 93 mEq/L (98-107)
[2019-03-12] MEDS: NORTRIPTYLINE HCL 25MG CAPSULE PO SCH (08:52)
[2019-03-12] MEDS: AMLODIPINE 10MG TABLET PO SCH (08:52)
[2019-03-12] MEDS: BUSPIRONE HCL 10MG TABLET PO SCH (08:52)
[2019-03-12] MEDS: FAMOTIDINE 20MG TABLET PO SCH ×2 (08:52→22:13)
[2019-03-12] MEDS: MONTELUKAST SODIUM 10MG TABLET PO SCH (08:52)
[2019-03-12] MEDS: ATENOLOL 25MG TABLET PO SCH (08:53)
[2019-03-12] MEDS: ASPIRIN 81MG EC TABLET PO SCH (08:55)
[2019-03-12] MEDS: ONDANSETRON HCL 4MG/2ML INJ IV PRN (08:57)
[2019-03-12] MEDS: SODIUM CHLORIDE 0.9% 1,000 ML IV SCH ×2 (09:45→22:14)
[2019-03-12 12:15] VITALS: BP 131/65
[2019-03-12 14:08] LABS: PLATELET ESTIMATE NORMAL
[2019-03-12 16:00] VITALS: BP 137/61
[2019-03-12] MEDS: ALPRAZOLAM 0.5 MG TABLET PO PRN (18:47)
[2019-03-12] MEDS: ACETAMINOPHEN 325MG TABLET PO PRN (18:48)
[2019-03-12 20:00] VITALS: BP 118/66
[2019-03-12] MEDS: ATORVASTATIN CALCIUM 20MG TABLET PO SCH (22:14)
[2019-03-13] VITALS: BP 114/61
[2019-03-13] MEDS: ALPRAZOLAM 0.5 MG TABLET PO PRN ×2 (00:18→14:42)
[2019-03-13] MEDS: IPRATROPIUM/ALBUTEROL 0.5-3(2.5)MG/3ML NEB HHN SCH ×5 (01:08→20:20)
[2019-03-13 06:01] VITALS: BP 128/70
[2019-03-13] MEDS: METHYLPREDNISOLONE SOD SUCC 40 MG/ML VIAL IV SCH ×2 (06:08→17:41)
[2019-03-13] MEDS: NYSTATIN 100,000 UNITS/ML 5ML UDC SSW SCH ×4 (06:13→17:41)
[2019-03-13] MEDS: LEVOTHYROXINE SODIUM 25MCG TABLET PO SCH (06:13)
[2019-03-13 06:28] LABS: HEMATOCRIT. 31.6 % (36.0-48.0); HEMOGLOBIN. 10.6 g/dL (12.0-16.0); MEAN CORPUSCULAR VOLUME 92.7 fL (81.0-99.0); MEAN PLATELET VOLUME 7.5 fl (7.4-10.4); PLATELET 414 x1000/uL (130-400); RED BLOOD CELL COUNT 3.41 mill/uL (4.2-5.4); RED CELL DISTRIBUTION WIDTH 13.2 % (11.6-14.6)
[2019-03-13 06:30] LABS: CHLORIDE 100 mEq/L (98-107)
[2019-03-13 08:00] VITALS: BP 136/62
[2019-03-13] MEDS: MONTELUKAST SODIUM 10MG TABLET PO SCH (09:30)
[2019-03-13] MEDS: NORTRIPTYLINE HCL 25MG CAPSULE PO SCH (09:31)
[2019-03-13] MEDS: BUSPIRONE HCL 10MG TABLET PO SCH (09:31)
[2019-03-13] MEDS: ATENOLOL 25MG TABLET PO SCH (09:31)
[2019-03-13] MEDS: FAMOTIDINE 20MG TABLET PO SCH ×2 (09:31→20:55)
[2019-03-13] MEDS: ASPIRIN 81MG EC TABLET PO SCH (09:31)
[2019-03-13] MEDS: AMLODIPINE 10MG TABLET PO SCH (09:31)
[2019-03-13] MEDS: SODIUM CHLORIDE 0.9% 1,000 ML IV SCH ×2 (11:10→13:17)
[2019-03-13 12:00] VITALS: BP 119/61
[2019-03-13] MEDS: GUAIFENESIN 600MG ER TABLET PO SCH ×2 (13:15→20:55)
[2019-03-13] MEDS: BUDESONIDE 0.5MG/2ML NEB HHN SCH ×2 (13:25→20:20)
[2019-03-13 16:00] VITALS: BP 123/72
[2019-03-13 16:26] LABS: PLATELET ESTIMATE NORMAL
[2019-03-13 20:00] VITALS: BP 127/66
[2019-03-13] MEDS: ATORVASTATIN CALCIUM 20MG TABLET PO SCH (20:55)
[2019-03-14] VITALS: BP 118/73
[2019-03-14] MEDS: SODIUM CHLORIDE 0.9% 1,000 ML IV SCH ×2 (00:30→13:50)
[2019-03-14] MEDS: IPRATROPIUM/ALBUTEROL 0.5-3(2.5)MG/3ML NEB HHN SCH ×3 (02:37→14:28)
[2019-03-14 04:00] VITALS: BP 118/73
[2019-03-14] MEDS: LEVOTHYROXINE SODIUM 25MCG TABLET PO SCH (06:28)
[2019-03-14] MEDS: NYSTATIN 100,000 UNITS/ML 5ML UDC SSW SCH ×3 (06:28→12:04)
[2019-03-14] MEDS: METHYLPREDNISOLONE SOD SUCC 40 MG/ML VIAL IV SCH (06:29)
[2019-03-14 07:49] LABS: HEMATOCRIT. 34.9 % (36.0-48.0); HEMOGLOBIN. 11.6 g/dL (12.0-16.0); MEAN CORPUSCULAR HEMOGLOBIN 31.3 pg (28.0-32.0); MEAN CORPUSCULAR VOLUME 94.2 fL (81.0-99.0); MEAN PLATELET VOLUME 7.2 fl (7.4-10.4); PLATELET 429 x1000/uL (130-400); RED BLOOD CELL COUNT 3.71 mill/uL (4.2-5.4); RED CELL DISTRIBUTION WIDTH 14.1 % (11.6-14.6)
[2019-03-14 07:58] LABS: CHLORIDE 100 mEq/L (98-107)
[2019-03-14 08:00] VITALS: BP 141/73
[2019-03-14] MEDS: BUDESONIDE 0.5MG/2ML NEB HHN SCH (08:19)
[2019-03-14] MEDS: ASPIRIN 81MG EC TABLET PO SCH (08:48)
[2019-03-14] MEDS: NORTRIPTYLINE HCL 25MG CAPSULE PO SCH (08:49)
[2019-03-14] MEDS: ATENOLOL 25MG TABLET PO SCH (08:49)
[2019-03-14] MEDS: BUSPIRONE HCL 10MG TABLET PO SCH (08:49)
[2019-03-14] MEDS: FAMOTIDINE 20MG TABLET PO SCH (08:49)
[2019-03-14] MEDS: MONTELUKAST SODIUM 10MG TABLET PO SCH (08:49)
[2019-03-14] MEDS: AMLODIPINE 10MG TABLET PO SCH (08:49)
[2019-03-14] MEDS: GUAIFENESIN 600MG ER TABLET PO SCH (08:52)
[2019-03-14] MEDS: ALPRAZOLAM 0.5 MG TABLET PO PRN (10:22)
[2019-03-14 15:40] LABS: PLATELET ESTIMATE INCREASED
[2019-03-14 16:08] VITALS: BP 108/55
== END 2019-03-14 16:51 | DRG 177 ==
LOC: ER 22:21 → 8WST 23:37 → EDBEDREQ 03-10 00:04 → EDBEDREQDT 03-10 00:04 → EDBEDREQTM 03-10 00:04 → ENRESERV 03-10 02:12 → ER 03-10 03:44
PROVIDERS: ADMIT Family Medicine Adult Medicine; ATTEND Family Medicine Adult Medicine
DX: J69.0 Pneumonitis due to inhalation of food and vomit (principal); J96.00 Acute respiratory failure, unspecified whether with hypoxia or hypercapnia; J44.1 Chronic obstructive pulmonary disease with (acute) exacerbation; E87.1 Hypo-osmolality and hyponatremia; J98.11 Atelectasis; J45.901 Unspecified asthma with (acute) exacerbation; B37.0 Candidal stomatitis; I10 Essential (primary) hypertension; E03.9 Hypothyroidism, unspecified; G43.909 Migraine, unspecified, not intractable, without status migrainosus; F32.9 Major depressive disorder, single episode, unspecified; R26.9 Unspecified abnormalities of gait and mobility; F41.9 Anxiety disorder, unspecified; E78.5 Hyperlipidemia, unspecified; I27.20 Pulmonary hypertension, unspecified; E78.00 Pure hypercholesterolemia, unspecified; D64.9 Anemia, unspecified; T38.0X5A Adverse effect of glucocorticoids and synthetic analogues, initial encounter; Z88.0 Allergy status to penicillin; Z88.8 Allergy status to other drugs, medicaments and biological substances; Z88.1 Allergy status to other antibiotic agents; Z79.82 Long term (current) use of aspirin; Y92.89 Other specified places as the place of occurrence of the external cause
CPT/HCPCS: 36415; 71045; 76700; 80048; 81003; 83605; 83735; 83880; 84100; 84145; 84443; 84484; 93005; 93970; 94640; 94644; 96365; 97162; 97166; 97530; 97535; 99291; C9113; J1956; J2405; J2920; J2930; J3475; J7030; J7611; J7620; J7626

== ENCOUNTER 2019-03-14 16:50 | Inpatient (IN) | payer MEDICARE, MEDICAID ==
[~2019-03-14] VITALS: Ht 154.9 cm; Wt 69.9 kg
[2019-03-14 16:00] VITALS: BP 122/62
[~2019-03-14 16:50] MED LIST changes: -ALPR0.5T PO; +AMLO10TA4 PO; +ASPI-1158 PO; +BUSP10TA3 PO; +DICY20TA11 PO; +FLUO40CA8 PO; +FLUO90CA4 PO; +LEVO25TA7 PO; +NORT25CA PO; +OMEP20CA5 PO; +RANI150T7 PO; +RANI15SY PO; +TOPI50TA24 PO
[2019-03-14] MEDS ORDERED: ONDANSETRON 4MG ODT PO PRN (17:45)
[2019-03-14] MEDS ORDERED: NA PHOS,M-B/NA PHOS,DI-BA ENEMA 118ML PR PRN (17:45)
[2019-03-14] MEDS ORDERED: MAGNESIUM/ALUMINUM HYDROXIDE/SIMETHICONE 30ML UDC PO PRN (17:45)
[2019-03-14] MEDS ORDERED: ZOLPIDEM TARTRATE 5MG TABLET PO PRN (17:45)
[2019-03-14] MEDS ORDERED: CLONIDINE 0.1MG TABLET PO PRN (17:45)
[2019-03-14] MEDS ORDERED: DIPHENHYDRAMINE 50MG/ML VIAL IV PRN (17:45)
[2019-03-14] MEDS ORDERED: GUAIFENESIN 200MG/10ML SUGAR FREE UDC PO PRN (17:45)
[2019-03-14] MEDS ORDERED: HYDROCODONE/ACETAMINOPHEN 5/325MG TABLET PO PRN (17:45)
[2019-03-14] MEDS: NYSTATIN 100,000 UNITS/ML 5ML UDC SSW SCH ×2 (18:00→23:22)
[2019-03-14] MEDS: METHYLPREDNISOLONE SOD SUCC 40 MG/ML VIAL IV SCH (18:24)
[2019-03-14] MEDS: ALPRAZOLAM 0.5 MG TABLET PO PRN (18:24)
[2019-03-14 18:47] VITALS: BP 122/62
[2019-03-14 20:00] VITALS: BP 125/67
[2019-03-14] MEDS: FAMOTIDINE 20MG TABLET PO SCH (20:51)
[2019-03-14] MEDS: ATORVASTATIN CALCIUM 20MG TABLET PO SCH (20:51)
[2019-03-14] MEDS: GUAIFENESIN 600MG ER TABLET PO SCH (20:53)
[2019-03-14] MEDS: BUDESONIDE 0.5MG/2ML NEB HHN SCH (21:19)
[2019-03-14] MEDS: IPRATROPIUM/ALBUTEROL 0.5-3(2.5)MG/3ML NEB HHN SCH (21:19)
[2019-03-14] MEDS: SODIUM CHLORIDE 0.9% 1,000 ML IV SCH (23:15)
[2019-03-15] MEDS: IPRATROPIUM/ALBUTEROL 0.5-3(2.5)MG/3ML NEB HHN SCH ×4 (02:30→21:36)
[2019-03-15] MEDS: NYSTATIN 100,000 UNITS/ML 5ML UDC SSW SCH ×3 (06:13→17:08)
[2019-03-15] MEDS: METHYLPREDNISOLONE SOD SUCC 40 MG/ML VIAL IV SCH ×2 (06:13→17:08)
[2019-03-15] MEDS: LEVOTHYROXINE SODIUM 25MCG TABLET PO SCH (06:13)
[2019-03-15 07:21] LABS: HEMATOCRIT. 32.7 % (36.0-48.0); HEMOGLOBIN. 10.7 g/dL (12.0-16.0); MEAN CORPUSCULAR VOLUME 94.6 fL (81.0-99.0); MEAN PLATELET VOLUME 7.1 fl (7.4-10.4); PLATELET 533 x1000/uL (130-400); RED BLOOD CELL COUNT 3.46 mill/uL (4.2-5.4); RED CELL DISTRIBUTION WIDTH 13.7 % (11.6-14.6)
[2019-03-15 07:47] VITALS: BP 110/66
[2019-03-15 08:01] LABS: CHLORIDE 101 mEq/L (98-107)
[2019-03-15] MEDS: NORTRIPTYLINE HCL 25MG CAPSULE PO SCH (08:50)
[2019-03-15] MEDS: BUSPIRONE HCL 10MG TABLET PO SCH (08:50)
[2019-03-15] MEDS: AMLODIPINE 10MG TABLET PO SCH (08:50)
[2019-03-15] MEDS: FAMOTIDINE 20MG TABLET PO SCH ×2 (08:50→20:45)
[2019-03-15] MEDS: SODIUM CHLORIDE 0.9% 1,000 ML IV SCH (08:50)
[2019-03-15] MEDS: DOCUSATE SODIUM 100MG CAPSULE PO SCH ×2 (08:51→17:08)
[2019-03-15] MEDS: ATENOLOL 25MG TABLET PO SCH (08:51)
[2019-03-15] MEDS: ASPIRIN 81MG EC TABLET PO SCH (08:51)
[2019-03-15] MEDS: GUAIFENESIN 600MG ER TABLET PO SCH ×2 (09:42→20:45)
[2019-03-15] MEDS: BUDESONIDE 0.5MG/2ML NEB HHN SCH ×2 (10:17→11:14)
[2019-03-15] MEDS: ACETAMINOPHEN 325MG TABLET PO PRN ×2 (10:59→20:54)
[2019-03-15 14:13] LABS: PLATELET ESTIMATE INCREASED
[2019-03-15] MEDS: ALPRAZOLAM 0.5 MG TABLET PO PRN (14:53)
[2019-03-15] MEDS: MONTELUKAST SODIUM 10MG TABLET PO SCH (17:08)
[2019-03-15] MEDS: LACTULOSE 20G/30ML UDC PO PRN (18:48)
[2019-03-15 20:00] VITALS: BP 127/71
[2019-03-15] MEDS: ATORVASTATIN CALCIUM 20MG TABLET PO SCH (20:45)
[2019-03-16] MEDS: NYSTATIN 100,000 UNITS/ML 5ML UDC SSW SCH ×4 (00:37→17:02)
[2019-03-16] MEDS: ALPRAZOLAM 0.5 MG TABLET PO PRN ×4 (01:23→21:37)
[2019-03-16] MEDS: IPRATROPIUM/ALBUTEROL 0.5-3(2.5)MG/3ML NEB HHN SCH ×4 (01:46→21:05)
[2019-03-16] MEDS: SODIUM CHLORIDE 0.9% 1,000 ML IV SCH ×2 (02:10→10:15)
[2019-03-16] MEDS: METHYLPREDNISOLONE SOD SUCC 40 MG/ML VIAL IV SCH ×2 (06:11→17:02)
[2019-03-16] MEDS: LEVOTHYROXINE SODIUM 25MCG TABLET PO SCH (06:11)
[2019-03-16] MEDS: BUDESONIDE 0.5MG/2ML NEB HHN SCH ×2 (07:30→21:05)
[2019-03-16 07:50] VITALS: BP 145/76
[2019-03-16] MEDS: ASPIRIN 81MG EC TABLET PO SCH (08:06)
[2019-03-16] MEDS: BISACODYL 10MG SUPP PR PRN (08:06)
[2019-03-16] MEDS: FAMOTIDINE 20MG TABLET PO SCH ×2 (08:06→21:37)
[2019-03-16] MEDS: ACETAMINOPHEN 325MG TABLET PO PRN (08:06)
[2019-03-16] MEDS: AMLODIPINE 10MG TABLET PO SCH (08:06)
[2019-03-16] MEDS: DOCUSATE SODIUM 100MG CAPSULE PO SCH ×2 (08:07→16:08)
[2019-03-16] MEDS: ATENOLOL 25MG TABLET PO SCH (08:07)
[2019-03-16] MEDS: BUSPIRONE HCL 10MG TABLET PO SCH (08:07)
[2019-03-16] MEDS: NORTRIPTYLINE HCL 25MG CAPSULE PO SCH (08:07)
[2019-03-16] MEDS: GUAIFENESIN 600MG ER TABLET PO SCH ×2 (08:12→21:37)
[2019-03-16] MEDS: MONTELUKAST SODIUM 10MG TABLET PO SCH (16:08)
[2019-03-16 20:00] VITALS: BP 141/71
[2019-03-16] MEDS: ATORVASTATIN CALCIUM 20MG TABLET PO SCH (21:37)
[2019-03-17] MEDS: SODIUM CHLORIDE 0.9% 1,000 ML IV SCH (00:08)
[2019-03-17] MEDS: IPRATROPIUM/ALBUTEROL 0.5-3(2.5)MG/3ML NEB HHN SCH ×4 (01:45→20:09)
[2019-03-17] MEDS: ACETAMINOPHEN 325MG TABLET PO PRN ×2 (04:40→17:22)
[2019-03-17] MEDS: NYSTATIN 100,000 UNITS/ML 5ML UDC SSW SCH ×4 (05:03→17:23)
[2019-03-17] MEDS: METHYLPREDNISOLONE SOD SUCC 40 MG/ML VIAL IV SCH (06:07)
[2019-03-17] MEDS: LEVOTHYROXINE SODIUM 25MCG TABLET PO SCH (06:07)
[2019-03-17 07:33] LABS: HEMATOCRIT. 28.1 % (36.0-48.0); HEMOGLOBIN. 9.4 g/dL (12.0-16.0); MEAN CORPUSCULAR HEMOGLOBIN 31.4 pg (28.0-32.0); MEAN CORPUSCULAR VOLUME 93.9 fL (81.0-99.0); MEAN PLATELET VOLUME 7.1 fl (7.4-10.4); PLATELET 513 x1000/uL (130-400); RED BLOOD CELL COUNT 2.99 mill/uL (4.2-5.4); RED CELL DISTRIBUTION WIDTH 13.9 % (11.6-14.6)
[2019-03-17 07:42] VITALS: BP 148/55
[2019-03-17 07:55] LABS: FOLIC ACID (FOLATE) SERUM 15.6 ng/mL (>5.38)
[2019-03-17] MEDS: BUSPIRONE HCL 10MG TABLET PO SCH (08:01)
[2019-03-17] MEDS: DOCUSATE SODIUM 100MG CAPSULE PO SCH ×2 (08:01→17:52)
[2019-03-17] MEDS: ATENOLOL 25MG TABLET PO SCH (08:01)
[2019-03-17] MEDS: FAMOTIDINE 20MG TABLET PO SCH ×2 (08:01→20:50)
[2019-03-17] MEDS: AMLODIPINE 10MG TABLET PO SCH (08:02)
[2019-03-17] MEDS: GUAIFENESIN 600MG ER TABLET PO SCH ×2 (08:02→20:50)
[2019-03-17] MEDS: NORTRIPTYLINE HCL 25MG CAPSULE PO SCH (08:02)
[2019-03-17] MEDS: ASPIRIN 81MG EC TABLET PO SCH (08:02)
[2019-03-17 08:47] LABS: CHLORIDE 103 mEq/L (98-107)
[2019-03-17] MEDS: BUDESONIDE 0.5MG/2ML NEB HHN SCH ×2 (08:49→20:08)
[2019-03-17 08:57] LABS: PHOSPHORUS 3.2 mg/dL (2.5-4.9)
[2019-03-17 08:58] LABS: TOTAL IRON BINDING CAPACITY 190 ug/dL (250-450)
[2019-03-17] MEDS: ALPRAZOLAM 0.5 MG TABLET PO PRN ×3 (09:29→22:11)
[2019-03-17 10:16] LABS: CLARITY URINE CLEAR (CLEAR); COLOR URINE YELLOW (YELLOW); KETONES URINE NEGATIVE (NEGATIVE); LEUKOCYTE ESTERASE URINE 1+ (NEGATIVE); NITRITE URINE POSITIVE (NEGATIVE); OCCULT BLOOD URINE NEGATIVE (NEGATIVE); PROTEIN URINE NEGATIVE (NEGATIVE); SPECIFIC GRAVITY URINE 1.007 (1.005-1.030); UROBILINOGEN URINE 0.2 E.U./dL (0.2-1.0)
[2019-03-17] MEDS: LIDOCAINE 5% PATCH TOP SCH (11:14)
[2019-03-17] MEDS ORDERED: MAGNESIUM 1 G PREMIX 100 ML IV SCH (12:00)
[2019-03-17] MEDS: FERROUS SULFATE 325MG TABLET PO SCH ×2 (12:30→17:52)
[2019-03-17] MEDS: NITROFURANTOIN MACROCRYSTAL 50MG CAPSULE PO SCH ×2 (14:37→17:52)
[2019-03-17] MEDS: MONTELUKAST SODIUM 10MG TABLET PO SCH (17:52)
[2019-03-17] MEDS: MAGNESIUM OXIDE 400MG TABLET PO SCH (17:52)
[2019-03-17 20:00] VITALS: BP 135/75
[2019-03-17] MEDS: ATORVASTATIN CALCIUM 20MG TABLET PO SCH (20:50)
[2019-03-18] MEDS: NITROFURANTOIN MACROCRYSTAL 50MG CAPSULE PO SCH ×4 (00:48→17:00)
[2019-03-18] MEDS: IPRATROPIUM/ALBUTEROL 0.5-3(2.5)MG/3ML NEB HHN SCH ×2 (01:33→09:53)
[2019-03-18] MEDS: NYSTATIN 100,000 UNITS/ML 5ML UDC SSW SCH ×4 (06:00→17:01)
[2019-03-18] MEDS: LEVOTHYROXINE SODIUM 25MCG TABLET PO SCH (06:15)
[2019-03-18] MEDS: ACETAMINOPHEN 325MG TABLET PO PRN (06:16)
[2019-03-18 07:58] VITALS: BP 129/70
[2019-03-18 07:58] LABS: HEMATOCRIT. 32.5 % (36.0-48.0); HEMOGLOBIN. 10.8 g/dL (12.0-16.0); MEAN CORPUSCULAR HEMOGLOBIN 31.1 pg (28.0-32.0); MEAN CORPUSCULAR VOLUME 93.8 fL (81.0-99.0); MEAN PLATELET VOLUME 7.1 fl (7.4-10.4); PLATELET 638 x1000/uL (130-400); RED BLOOD CELL COUNT 3.46 mill/uL (4.2-5.4)
[2019-03-18 08:34] LABS: CHLORIDE 96 mEq/L (98-107)
[2019-03-18] MEDS: FERROUS SULFATE 325MG TABLET PO SCH ×3 (08:47→17:00)
[2019-03-18] MEDS: BUSPIRONE HCL 10MG TABLET PO SCH (08:47)
[2019-03-18] MEDS: FAMOTIDINE 20MG TABLET PO SCH (08:47)
[2019-03-18] MEDS: DOCUSATE SODIUM 100MG CAPSULE PO SCH ×2 (08:47→17:00)
[2019-03-18] MEDS: MAGNESIUM OXIDE 400MG TABLET PO SCH ×2 (08:47→17:00)
[2019-03-18] MEDS: AMLODIPINE 10MG TABLET PO SCH (08:47)
[2019-03-18] MEDS: ASPIRIN 81MG EC TABLET PO SCH (08:48)
[2019-03-18] MEDS: PREDNISONE 20MG TABLET PO SCH (08:48)
[2019-03-18] MEDS: GUAIFENESIN 600MG ER TABLET PO SCH ×2 (08:49→20:26)
[2019-03-18] MEDS: NORTRIPTYLINE HCL 25MG CAPSULE PO SCH (08:49)
[2019-03-18] MEDS: LIDOCAINE 5% PATCH TOP SCH (08:49)
[2019-03-18] MEDS: ALPRAZOLAM 0.5 MG TABLET PO PRN ×2 (09:57→20:26)
[2019-03-18] MEDS: ATENOLOL 25MG TABLET PO SCH (09:58)
[2019-03-18] MEDS ORDERED: POTASSIUM CHLORIDE 20MEQ TABLET SR PO NR (11:30)
[2019-03-18 13:18] LABS: BG BASE EXCESS -0.2 mmol/L (-2.0-2.0); BG CARBOXYHEMOGLOBIN 0.6 % (0.5-1.5); BG DEOXYHEMOGLOBIN 5.9 % (0.0-5.0); BG FRACTION INSPIRED OXYGEN 28; BG HCO3 ACT 22.8 mmol/L (22.0-26.0); BG METHEMOGLOBIN 0.3 % (0.0-1.5); BG OXYHEMOGLOBIN 93.2 % (94.0-97.0); BG PCO2 31.7 mmHg (35.0-45.0); BG PH 7.474 (7.350-7.450); BG PO2 69.1 mmHg (75.0-100.0); BG SAMPLE SITE RIGHT RADIAL; BG TOTAL HEMOGLOBIN 11.3 g/dL (12.0-18.0); BG VENT MODE NASAL CANNULA
[2019-03-18] MEDS: ALBUTEROL (0.083%) 2.5MG/3ML NEB HHN SCH ×2 (15:14→20:04)
[2019-03-18] MEDS ORDERED: ALBUTEROL (0.083%) 2.5MG/3ML NEB HHN SCH (16:00)
[2019-03-18 16:02] LABS: PLATELET ESTIMATE INCREASED
[2019-03-18] MEDS: MONTELUKAST SODIUM 10MG TABLET PO SCH (17:00)
[2019-03-18] MEDS: LACTULOSE 20G/30ML UDC PO PRN (17:01)
[2019-03-18 20:00] VITALS: BP 117/66
[2019-03-18] MEDS: ATORVASTATIN CALCIUM 20MG TABLET PO SCH (20:26)
[2019-03-19] MEDS: ALPRAZOLAM 0.5 MG TABLET PO PRN ×4 (00:29→23:40)
[2019-03-19] MEDS: NITROFURANTOIN MACROCRYSTAL 50MG CAPSULE PO SCH ×5 (00:29→23:39)
[2019-03-19] MEDS: ALBUTEROL (0.083%) 2.5MG/3ML NEB HHN SCH ×4 (01:15→20:57)
[2019-03-19] MEDS: NYSTATIN 100,000 UNITS/ML 5ML UDC SSW SCH ×5 (06:00→23:39)
[2019-03-19] MEDS: LEVOTHYROXINE SODIUM 25MCG TABLET PO SCH (06:03)
[2019-03-19 06:53] LABS: HEMATOCRIT. 30.2 % (36.0-48.0); HEMOGLOBIN. 9.8 g/dL (12.0-16.0); MEAN CORPUSCULAR HEMOGLOBIN 30.9 pg (28.0-32.0); MEAN CORPUSCULAR VOLUME 94.7 fL (81.0-99.0); MEAN PLATELET VOLUME 7.4 fl (7.4-10.4); PLATELET 552 x1000/uL (130-400); RED BLOOD CELL COUNT 3.18 mill/uL (4.2-5.4); RED CELL DISTRIBUTION WIDTH 14.1 % (11.6-14.6)
[2019-03-19 07:12] LABS: CHLORIDE 97 mEq/L (98-107)
[2019-03-19 08:04] VITALS: BP 128/71
[2019-03-19] MEDS: PREDNISONE 20MG TABLET PO SCH (08:48)
[2019-03-19] MEDS: GUAIFENESIN 600MG ER TABLET PO SCH ×2 (08:48→21:37)
[2019-03-19] MEDS: ASPIRIN 81MG EC TABLET PO SCH (08:48)
[2019-03-19] MEDS: DOCUSATE SODIUM 100MG CAPSULE PO SCH ×2 (08:48→17:12)
[2019-03-19] MEDS: LIDOCAINE 5% PATCH TOP SCH (08:48)
[2019-03-19] MEDS: MAGNESIUM OXIDE 400MG TABLET PO SCH ×2 (08:48→17:12)
[2019-03-19] MEDS: FAMOTIDINE 20MG TABLET PO SCH (08:49)
[2019-03-19] MEDS: BUSPIRONE HCL 10MG TABLET PO SCH (08:49)
[2019-03-19] MEDS: NORTRIPTYLINE HCL 25MG CAPSULE PO SCH (08:49)
[2019-03-19] MEDS: ATENOLOL 25MG TABLET PO SCH (08:49)
[2019-03-19] MEDS: FERROUS SULFATE 325MG TABLET PO SCH ×3 (08:50→17:12)
[2019-03-19] MEDS: AMLODIPINE 10MG TABLET PO SCH (08:50)
[2019-03-19] MEDS: IPRATROPIUM/ALBUTEROL 0.5-3(2.5)MG/3ML NEB HHN PRN ×2 (10:33→17:54)
[2019-03-19] MEDS ORDERED: LEVOFLOXACIN 500MG TABLET PO NR (13:15)
[2019-03-19 13:32] LABS: PLATELET ESTIMATE INCREASED
[2019-03-19] MEDS: MONTELUKAST SODIUM 10MG TABLET PO SCH (17:12)
[2019-03-19] MEDS: BISACODYL 10MG SUPP PR PRN (17:13)
[2019-03-19] MEDS ORDERED: LEVOFLOXACIN 500MG TABLET PO ONE (17:30)
[2019-03-19 20:00] VITALS: BP 110/64
[2019-03-19] MEDS: ATORVASTATIN CALCIUM 20MG TABLET PO SCH (21:37)
[2019-03-19] MEDS: LACTULOSE 20G/30ML UDC PO PRN (23:39)
[2019-03-20] MEDS: IPRATROPIUM/ALBUTEROL 0.5-3(2.5)MG/3ML NEB HHN PRN ×4 (00:27→20:02)
[2019-03-20] MEDS: ALBUTEROL (0.083%) 2.5MG/3ML NEB HHN SCH ×5 (04:00→20:00)
[2019-03-20] MEDS: LEVOTHYROXINE SODIUM 25MCG TABLET PO SCH (06:10)
[2019-03-20] MEDS: NITROFURANTOIN MACROCRYSTAL 50MG CAPSULE PO SCH ×4 (06:10→23:50)
[2019-03-20] MEDS: NYSTATIN 100,000 UNITS/ML 5ML UDC SSW SCH ×4 (06:10→23:50)
[2019-03-20 07:17] LABS: HEMATOCRIT. 27.4 % (36.0-48.0); MEAN CORPUSCULAR HEMOGLOBIN 31.2 pg (28.0-32.0); MEAN CORPUSCULAR VOLUME 94.8 fL (81.0-99.0); MEAN PLATELET VOLUME 7.4 fl (7.4-10.4); PLATELET 595 x1000/uL (130-400); RED BLOOD CELL COUNT 2.89 mill/uL (4.2-5.4); RED CELL DISTRIBUTION WIDTH 14.4 % (11.6-14.6)
[2019-03-20 07:20] LABS: CHLORIDE 96 mEq/L (98-107)
[2019-03-20 08:00] VITALS: BP 127/55
[2019-03-20] MEDS: BUSPIRONE HCL 10MG TABLET PO SCH (09:22)
[2019-03-20] MEDS: DOCUSATE SODIUM 100MG CAPSULE PO SCH ×2 (09:22→17:21)
[2019-03-20] MEDS: FERROUS SULFATE 325MG TABLET PO SCH ×3 (09:23→17:21)
[2019-03-20] MEDS: MAGNESIUM OXIDE 400MG TABLET PO SCH ×2 (09:23→17:21)
[2019-03-20] MEDS: ASPIRIN 81MG EC TABLET PO SCH (09:23)
[2019-03-20] MEDS: AMLODIPINE 10MG TABLET PO SCH (09:23)
[2019-03-20] MEDS: FAMOTIDINE 20MG TABLET PO SCH (09:24)
[2019-03-20] MEDS: NORTRIPTYLINE HCL 25MG CAPSULE PO SCH (09:24)
[2019-03-20] MEDS: GUAIFENESIN 600MG ER TABLET PO SCH ×2 (09:24→21:28)
[2019-03-20] MEDS: ATENOLOL 25MG TABLET PO SCH (09:43)
[2019-03-20] MEDS: PREDNISONE 20MG TABLET PO SCH (09:44)
[2019-03-20] MEDS: LIDOCAINE 5% PATCH TOP SCH (09:44)
[2019-03-20 10:42] LABS: PLATELET ESTIMATE INCREASED
[2019-03-20] MEDS ORDERED: LEVOFLOXACIN 250MG TABLET PO SCH ×2 (11:00)
[2019-03-20] MEDS: ALPRAZOLAM 0.5 MG TABLET PO PRN ×2 (11:38→23:51)
[2019-03-20] MEDS: ACETAMINOPHEN 325MG TABLET PO PRN (11:39)
[2019-03-20 14:12] LABS: PLATELET ESTIMATE INCREASED
[2019-03-20] MEDS: MONTELUKAST SODIUM 10MG TABLET PO SCH (17:21)
[2019-03-20 20:00] VITALS: BP 110/55
[2019-03-20] MEDS: ATORVASTATIN CALCIUM 20MG TABLET PO SCH (21:28)
[2019-03-20] MEDS: MUPIROCIN 2% OINT 22GM TOP SCH (21:29)
[2019-03-21] MEDS: IPRATROPIUM/ALBUTEROL 0.5-3(2.5)MG/3ML NEB HHN PRN ×3 (00:22→19:54)
[2019-03-21] MEDS: ALBUTEROL (0.083%) 2.5MG/3ML NEB HHN SCH ×6 (04:00→20:00)
[2019-03-21 04:09] LABS: 25-HYDROXY VITAMIN D3 20 ng/mL (.)
[2019-03-21] MEDS: NYSTATIN 100,000 UNITS/ML 5ML UDC SSW SCH ×3 (06:16→16:45)
[2019-03-21] MEDS: NITROFURANTOIN MACROCRYSTAL 50MG CAPSULE PO SCH ×3 (06:16→16:45)
[2019-03-21] MEDS: MUPIROCIN 2% OINT 22GM TOP SCH ×3 (06:17→22:00)
[2019-03-21] MEDS: LEVOTHYROXINE SODIUM 25MCG TABLET PO SCH (06:19)
[2019-03-21 07:14] LABS: HEMATOCRIT. 24.1 % (36.0-48.0); HEMOGLOBIN. 8.1 g/dL (12.0-16.0); MEAN CORPUSCULAR HEMOGLOBIN 31.7 pg (28.0-32.0); MEAN CORPUSCULAR VOLUME 94.7 fL (81.0-99.0); MEAN PLATELET VOLUME 7.3 fl (7.4-10.4); PLATELET 649 x1000/uL (130-400); RED BLOOD CELL COUNT 2.54 mill/uL (4.2-5.4); RED CELL DISTRIBUTION WIDTH 14.4 % (11.6-14.6)
[2019-03-21 07:30] LABS: CHLORIDE 97 mEq/L (98-107)
[2019-03-21 08:00] VITALS: BP 121/52
[2019-03-21] MEDS ORDERED: PREDNISONE 20MG TABLET PO SCH (09:00)
[2019-03-21] MEDS: FERROUS SULFATE 325MG TABLET PO SCH ×3 (09:52→16:45)
[2019-03-21] MEDS: AMLODIPINE 10MG TABLET PO SCH (09:52)
[2019-03-21] MEDS: MAGNESIUM OXIDE 400MG TABLET PO SCH ×2 (09:52→16:45)
[2019-03-21] MEDS: ASPIRIN 81MG EC TABLET PO SCH (09:52)
[2019-03-21] MEDS: FAMOTIDINE 20MG TABLET PO SCH (09:53)
[2019-03-21] MEDS: NORTRIPTYLINE HCL 25MG CAPSULE PO SCH (09:53)
[2019-03-21] MEDS: DOCUSATE SODIUM 100MG CAPSULE PO SCH ×2 (09:53→16:45)
[2019-03-21] MEDS: LIDOCAINE 5% PATCH TOP SCH (09:53)
[2019-03-21] MEDS: GUAIFENESIN 600MG ER TABLET PO SCH ×2 (09:53→21:00)
[2019-03-21] MEDS: ATENOLOL 25MG TABLET PO SCH (09:53)
[2019-03-21] MEDS: BUSPIRONE HCL 10MG TABLET PO SCH (09:53)
[2019-03-21] MEDS: ALPRAZOLAM 0.5 MG TABLET PO PRN ×2 (09:58→16:50)
[2019-03-21 15:13] LABS: PLATELET ESTIMATE INCREASED
[2019-03-21] MEDS: MONTELUKAST SODIUM 10MG TABLET PO SCH (16:45)
[2019-03-21] MEDS: BISACODYL 10MG SUPP PR PRN (16:46)
[2019-03-21 20:00] VITALS: BP 105/75
[2019-03-21] MEDS ORDERED: ERGOCALCIFEROL 50000UNITS CAPSULE PO SCH (20:00)
[2019-03-21] MEDS: ATORVASTATIN CALCIUM 20MG TABLET PO SCH (21:00)
[2019-03-21] MEDS ORDERED: NON FORMULARY PATIENT HOME MED PO PRN (21:00)
[2019-03-21] MEDS ORDERED: NON FORMULARY PATIENT HOME MED PO SCH (21:15)
[2019-03-22] MEDS: IPRATROPIUM/ALBUTEROL 0.5-3(2.5)MG/3ML NEB HHN PRN ×4 (00:05→13:25)
[2019-03-22] MEDS: AMITIZA 8 MCG PO SCH ×3 (00:11→17:44)
[2019-03-22] MEDS: NITROFURANTOIN MACROCRYSTAL 50MG CAPSULE PO SCH ×5 (00:13→23:03)
[2019-03-22] MEDS: NYSTATIN 100,000 UNITS/ML 5ML UDC SSW SCH ×5 (00:13→23:03)
[2019-03-22] MEDS: ALPRAZOLAM 0.5 MG TABLET PO PRN ×3 (00:14→22:45)
[2019-03-22] MEDS: ALBUTEROL (0.083%) 2.5MG/3ML NEB HHN SCH ×2 (04:00)
[2019-03-22] MEDS: MUPIROCIN 2% OINT 22GM TOP SCH ×3 (05:51→21:06)
[2019-03-22] MEDS: LEVOTHYROXINE SODIUM 25MCG TABLET PO SCH (05:52)
[2019-03-22 07:27] LABS: CHLORIDE 97 mEq/L (98-107)
[2019-03-22 07:29] LABS: HEMATOCRIT. 23.6 % (36.0-48.0); HEMOGLOBIN. 8.2 g/dL (12.0-16.0); MEAN CORPUSCULAR HEMOGLOBIN 33.6 pg (28.0-32.0); MEAN CORPUSCULAR VOLUME 96.2 fL (81.0-99.0); MEAN PLATELET VOLUME 7.6 fl (7.4-10.4); PLATELET 572 x1000/uL (130-400); RED BLOOD CELL COUNT 2.45 mill/uL (4.2-5.4); RED CELL DISTRIBUTION WIDTH 14.8 % (11.6-14.6)
[2019-03-22 08:23] VITALS: BP 106/57
[2019-03-22] MEDS: ATENOLOL 25MG TABLET PO SCH (09:00)
[2019-03-22] MEDS: AMLODIPINE 10MG TABLET PO SCH (09:00)
[2019-03-22] MEDS: NORTRIPTYLINE HCL 25MG CAPSULE PO SCH (09:39)
[2019-03-22] MEDS: FERROUS SULFATE 325MG TABLET PO SCH ×3 (09:39→17:44)
[2019-03-22] MEDS: BUSPIRONE HCL 10MG TABLET PO SCH (09:39)
[2019-03-22] MEDS: PREDNISONE 20MG TABLET PO SCH (09:40)
[2019-03-22] MEDS: MAGNESIUM OXIDE 400MG TABLET PO SCH ×2 (09:40→17:44)
[2019-03-22] MEDS: GUAIFENESIN 600MG ER TABLET PO SCH ×2 (09:40→21:05)
[2019-03-22] MEDS: DOCUSATE SODIUM 100MG CAPSULE PO SCH ×2 (09:40→17:40)
[2019-03-22] MEDS: ASPIRIN 81MG EC TABLET PO SCH (09:40)
[2019-03-22] MEDS: FAMOTIDINE 20MG TABLET PO SCH (09:40)
[2019-03-22] MEDS: LIDOCAINE 5% PATCH TOP SCH (09:41)
[2019-03-22] MEDS: ACETAMINOPHEN 325MG TABLET PO PRN (14:18)
[2019-03-22 16:14] LABS: PLATELET ESTIMATE INCREASED
[2019-03-22 16:41] LABS: CHLORIDE 94 mEq/L (98-107)
[2019-03-22] MEDS: IPRATROPIUM/ALBUTEROL 0.5-3(2.5)MG/3ML NEB HHN SCH ×2 (17:08→20:47)
[2019-03-22] MEDS: MONTELUKAST SODIUM 10MG TABLET PO SCH (17:44)
[2019-03-22] MEDS ORDERED: SORBITOL 70% SOLN 30ML PO NR (18:15)
[2019-03-22 20:00] VITALS: BP 107/47
[2019-03-22] MEDS: BUDESONIDE 0.5MG/2ML NEB HHN SCH (20:48)
[2019-03-22] MEDS: ATORVASTATIN CALCIUM 20MG TABLET PO SCH (21:05)
[2019-03-23] MEDS: IPRATROPIUM/ALBUTEROL 0.5-3(2.5)MG/3ML NEB HHN SCH ×6 (00:39→20:50)
[2019-03-23] MEDS: LEVOTHYROXINE SODIUM 25MCG TABLET PO SCH (06:16)
[2019-03-23] MEDS: NYSTATIN 100,000 UNITS/ML 5ML UDC SSW SCH ×4 (06:16→23:32)
[2019-03-23] MEDS: NITROFURANTOIN MACROCRYSTAL 50MG CAPSULE PO SCH ×4 (06:16→23:32)
[2019-03-23] MEDS: MUPIROCIN 2% OINT 22GM TOP SCH ×3 (06:17→21:06)
[2019-03-23] MEDS: BUDESONIDE 0.5MG/2ML NEB HHN SCH ×2 (07:51→20:50)
[2019-03-23 07:53] LABS: HEMOGLOBIN. 7.8 g/dL (12.0-16.0); MEAN CORPUSCULAR HEMOGLOBIN 31.7 pg (28.0-32.0); MEAN CORPUSCULAR VOLUME 97.5 fL (81.0-99.0); MEAN PLATELET VOLUME 7.7 fl (7.4-10.4); PLATELET 595 x1000/uL (130-400); RED BLOOD CELL COUNT 2.46 mill/uL (4.2-5.4); RED CELL DISTRIBUTION WIDTH 15.2 % (11.6-14.6)
[2019-03-23 08:04] VITALS: BP 128/64
[2019-03-23 08:28] LABS: CHLORIDE 98 mEq/L (98-107)
[2019-03-23] MEDS: ASPIRIN 81MG EC TABLET PO SCH (09:15)
[2019-03-23] MEDS: PREDNISONE 20MG TABLET PO SCH (09:15)
[2019-03-23] MEDS: ATENOLOL 25MG TABLET PO SCH (09:15)
[2019-03-23] MEDS: ALPRAZOLAM 0.5 MG TABLET PO PRN ×3 (09:15→23:32)
[2019-03-23] MEDS: MAGNESIUM OXIDE 400MG TABLET PO SCH ×2 (09:15→16:32)
[2019-03-23] MEDS: BUSPIRONE HCL 10MG TABLET PO SCH (09:15)
[2019-03-23] MEDS: FAMOTIDINE 20MG TABLET PO SCH (09:15)
[2019-03-23] MEDS: GUAIFENESIN 600MG ER TABLET PO SCH ×2 (09:16→20:37)
[2019-03-23] MEDS: NORTRIPTYLINE HCL 25MG CAPSULE PO SCH (09:16)
[2019-03-23] MEDS: DOCUSATE SODIUM 100MG CAPSULE PO SCH ×2 (09:16→16:33)
[2019-03-23] MEDS: AMLODIPINE 10MG TABLET PO SCH (09:16)
[2019-03-23] MEDS: AMITIZA 8 MCG PO SCH ×2 (09:19→16:33)
[2019-03-23] MEDS: LIDOCAINE 5% PATCH TOP SCH (09:20)
[2019-03-23] MEDS ORDERED: MAGNESIUM CITRATE 300ML SOLUTION PO NR (10:30)
[2019-03-23 12:55] LABS: PLATELET ESTIMATE INCREASED
[2019-03-23] MEDS ORDERED: BISACODYL 5MG TABLET PO PRN (14:45)
[2019-03-23] MEDS ORDERED: BISACODYL 5MG TABLET PO NR (14:45)
[2019-03-23] MEDS: FERROUS SULFATE 325MG TABLET PO SCH (16:30)
[2019-03-23] MEDS: MONTELUKAST SODIUM 10MG TABLET PO SCH (16:32)
[2019-03-23] MEDS: BISACODYL 10MG SUPP PR PRN (17:14)
[2019-03-23] MEDS ORDERED: BISACODYL 10MG SUPP PR NR (18:45)
[2019-03-23] MEDS: LACTULOSE 20G/30ML UDC PO SCH ×3 (18:57→20:37)
[2019-03-23 20:00] VITALS: BP 106/69
[2019-03-23] MEDS: ATORVASTATIN CALCIUM 20MG TABLET PO SCH (20:37)
[2019-03-24] MEDS: IPRATROPIUM/ALBUTEROL 0.5-3(2.5)MG/3ML NEB HHN SCH ×6 (00:19→20:38)
[2019-03-24] MEDS: NYSTATIN 100,000 UNITS/ML 5ML UDC SSW SCH ×4 (06:00→23:10)
[2019-03-24] MEDS: NITROFURANTOIN MACROCRYSTAL 50MG CAPSULE PO SCH ×3 (06:03→17:48)
[2019-03-24] MEDS: ACETAMINOPHEN 325MG TABLET PO PRN (06:03)
[2019-03-24] MEDS: MUPIROCIN 2% OINT 22GM TOP SCH ×3 (06:04→21:35)
[2019-03-24] MEDS: LEVOTHYROXINE SODIUM 25MCG TABLET PO SCH (06:04)
[2019-03-24 07:33] LABS: HEMATOCRIT. 22.5 % (36.0-48.0); HEMOGLOBIN. 7.5 g/dL (12.0-16.0); MEAN CORPUSCULAR HEMOGLOBIN 31.8 pg (28.0-32.0); MEAN PLATELET VOLUME 7.8 fl (7.4-10.4); PLATELET 591 x1000/uL (130-400); RED BLOOD CELL COUNT 2.35 mill/uL (4.2-5.4); RED CELL DISTRIBUTION WIDTH 15.2 % (11.6-14.6)
[2019-03-24 07:52] VITALS: BP 105/55
[2019-03-24 07:56] VITALS: BP 105/55
[2019-03-24 08:01] LABS: CHLORIDE 94 mEq/L (98-107)
[2019-03-24] MEDS: BUDESONIDE 0.5MG/2ML NEB HHN SCH ×2 (08:04→20:41)
[2019-03-24] MEDS: ASPIRIN 81MG EC TABLET PO SCH (09:22)
[2019-03-24] MEDS: ATENOLOL 25MG TABLET PO SCH (09:22)
[2019-03-24] MEDS: LIDOCAINE 5% PATCH TOP SCH (09:22)
[2019-03-24] MEDS: AMLODIPINE 10MG TABLET PO SCH (09:22)
[2019-03-24] MEDS: PREDNISONE 20MG TABLET PO SCH (09:22)
[2019-03-24] MEDS: FAMOTIDINE 20MG TABLET PO SCH (09:22)
[2019-03-24] MEDS: GUAIFENESIN 600MG ER TABLET PO SCH ×2 (09:22→20:07)
[2019-03-24] MEDS: BUSPIRONE HCL 10MG TABLET PO SCH (09:22)
[2019-03-24] MEDS: NORTRIPTYLINE HCL 25MG CAPSULE PO SCH (09:23)
[2019-03-24] MEDS: ALPRAZOLAM 0.5 MG TABLET PO PRN ×2 (09:23→17:48)
[2019-03-24] MEDS: DOCUSATE SODIUM 100MG CAPSULE PO SCH ×2 (09:23→17:48)
[2019-03-24] MEDS: FERROUS SULFATE 325MG TABLET PO SCH (09:23)
[2019-03-24] MEDS: AMITIZA 8 MCG PO SCH ×2 (09:26→17:00)
[2019-03-24 09:50] LABS: NUCLEATED RED BLOOD CELLS 2 /100 WBC
[2019-03-24 09:51] LABS: PLATELET ESTIMATE INCREASED
[2019-03-24] MEDS ORDERED: HYDROCODONE/ACETAMINOPHEN 5/325MG TABLET PO PRN (11:15)
[2019-03-24] MEDS: MONTELUKAST SODIUM 10MG TABLET PO SCH (17:48)
[2019-03-24 20:00] VITALS: BP 93/47
[2019-03-24] MEDS: LACTULOSE 20G/30ML UDC PO SCH (20:05)
[2019-03-24] MEDS: ATORVASTATIN CALCIUM 20MG TABLET PO SCH (20:07)
[2019-03-25] MEDS: IPRATROPIUM/ALBUTEROL 0.5-3(2.5)MG/3ML NEB HHN SCH ×5 (00:40→11:08)
[2019-03-25 00:43] VITALS: BP 96/52
[2019-03-25 00:57] VITALS: BP 105/55
[2019-03-25] MEDS: ALPRAZOLAM 0.5 MG TABLET PO PRN (01:02)
[2019-03-25 01:57] VITALS: BP 101/50
[2019-03-25 03:15] VITALS: BP 108/59
[2019-03-25] MEDS: NYSTATIN 100,000 UNITS/ML 5ML UDC SSW SCH ×2 (06:00→11:16)
[2019-03-25] MEDS: MUPIROCIN 2% OINT 22GM TOP SCH ×2 (06:11→13:37)
[2019-03-25] MEDS: LEVOTHYROXINE SODIUM 25MCG TABLET PO SCH (06:13)
[2019-03-25 07:23] LABS: CHLORIDE 95 mEq/L (98-107)
[2019-03-25 07:24] LABS: HEMATOCRIT. 25.2 % (36.0-48.0); HEMOGLOBIN. 8.4 g/dL (12.0-16.0); MEAN CORPUSCULAR VOLUME 92.5 fL (81.0-99.0); MEAN PLATELET VOLUME 7.8 fl (7.4-10.4); PLATELET 500 x1000/uL (130-400); RED BLOOD CELL COUNT 2.72 mill/uL (4.2-5.4); RED CELL DISTRIBUTION WIDTH 16.8 % (11.6-14.6)
[2019-03-25] MEDS: BUDESONIDE 0.5MG/2ML NEB HHN SCH (07:45)
[2019-03-25 07:59] VITALS: BP 108/54
[2019-03-25] MEDS: ATENOLOL 25MG TABLET PO SCH (09:00)
[2019-03-25] MEDS: AMLODIPINE 10MG TABLET PO SCH (09:00)
[2019-03-25] MEDS: FAMOTIDINE 20MG TABLET PO SCH (09:06)
[2019-03-25] MEDS: DOCUSATE SODIUM 100MG CAPSULE PO SCH (09:06)
[2019-03-25] MEDS: PREDNISONE 20MG TABLET PO SCH (09:06)
[2019-03-25] MEDS: NORTRIPTYLINE HCL 25MG CAPSULE PO SCH (09:06)
[2019-03-25] MEDS: GUAIFENESIN 600MG ER TABLET PO SCH (09:06)
[2019-03-25] MEDS: BUSPIRONE HCL 10MG TABLET PO SCH (09:06)
[2019-03-25] MEDS: LIDOCAINE 5% PATCH TOP SCH ×2 (09:07→09:15)
[2019-03-25] MEDS: ASPIRIN 81MG EC TABLET PO SCH (09:07)
[2019-03-25] MEDS: AMITIZA 8 MCG PO SCH (09:08)
[2019-03-25 10:30] VITALS: BP 108/54
[2019-03-25 11:31] LABS: PLATELET ESTIMATE INCREASED
[2019-03-25] MEDS ORDERED: ALPRAZOLAM 0.5 MG TABLET PO NR (12:45)
== END 2019-03-25 14:20 | disposition home health service (06) | DRG 947 ==
PROVIDERS: ADMIT Physical Medicine & Rehabilitation Spinal Cord Injury Medicine; ATTEND Family Medicine Adult Medicine
DX: R53.81 Other malaise (principal); J18.9 Pneumonia, unspecified organism; J96.00 Acute respiratory failure, unspecified whether with hypoxia or hypercapnia; J44.1 Chronic obstructive pulmonary disease with (acute) exacerbation; E87.1 Hypo-osmolality and hyponatremia; B37.0 Candidal stomatitis; E46 Unspecified protein-calorie malnutrition; J98.11 Atelectasis; N39.0 Urinary tract infection, site not specified; F33.1 Major depressive disorder, recurrent, moderate; J44.0 Chronic obstructive pulmonary disease with (acute) lower respiratory infection; I10 Essential (primary) hypertension; E03.9 Hypothyroidism, unspecified; D64.9 Anemia, unspecified; E78.00 Pure hypercholesterolemia, unspecified; E78.5 Hyperlipidemia, unspecified; F41.1 Generalized anxiety disorder; M19.90 Unspecified osteoarthritis, unspecified site; G43.909 Migraine, unspecified, not intractable, without status migrainosus; F06.8 Other specified mental disorders due to known physiological condition; R62.7 Adult failure to thrive; S01.81XA Laceration without foreign body of other part of head, initial encounter; K59.00 Constipation, unspecified; E55.9 Vitamin D deficiency, unspecified; Z91.81 History of falling; Z87.81 Personal history of (healed) traumatic fracture; Z88.0 Allergy status to penicillin; Z88.1 Allergy status to other antibiotic agents; Z88.2 Allergy status to sulfonamides; Z88.8 Allergy status to other drugs, medicaments and biological substances; Z79.82 Long term (current) use of aspirin; Z79.899 Other long term (current) drug therapy; Z83.3 Family history of diabetes mellitus; Z82.49 Family history of ischemic heart disease and other diseases of the circulatory system; X58.XXXA Exposure to other specified factors, initial encounter; Y93.89 Activity, other specified; Y92.89 Other specified places as the place of occurrence of the external cause; Y99.8 Other external cause status
CPT/HCPCS: 36415; 36600; 71045; 74018; 80048; 81003; 82306; 82375; 82607; 82728; 82746; 82805; 83540; 83550; 83605; 83735; 83880; 83930; 83935; 84100; 84134; 84145; 84443; 86850; 86900; 86920; 87077; 87186; 92610; 93970; 94640; 97110; 97116; 97162; 97167; 97530; 97535; C1893; J2920; J3475; J7030; J7040; J7512; J7611; J7620; J7626; P9016; Q0162

== ENCOUNTER 2024-02-23 14:02 | Emergency (ER) | payer MEDICARE, MEDICAID ==
[~2024-02-23] VITALS: Ht 152.4 cm; Wt 53.0 kg
[~2024-02-23 14:02] MED LIST changes: -ASPI-1158 PO; -ASPI-1393 PO; +ASPI-1406 PO; +ASPI-1497 PO; -BUSP-29 PO; +BUSP10TA4 PO; -DICY20TA11 PO; +DICY20TA2 PO; +MONT-39 PO; -MONT10TA24 PO; +OMEP20CA14 PO; -OMEP20CA5 PO; +OMEP40CA20 PO; -OMEP40CA34 PO; +TOPI-95 PO; -TOPI50TA24 PO
[2024-02-23 14:42] LABS: HEMATOCRIT. 33.7 % (36.0-48.0); HEMOGLOBIN. 11.3 g/dL (12.0-16.0); MEAN CORPUSCULAR HEMOGLOBIN 33.3 pg (28.0-32.0); MEAN CORPUSCULAR HGB CONC 33.5 g/dL (31.0-37.0); MEAN CORPUSCULAR VOLUME 99.5 fL (81.0-99.0); MEAN PLATELET VOLUME 7.2 fl (7.4-10.4); PLATELET 325 x1000/uL (130-400); RED BLOOD CELL COUNT 3.39 mill/uL (4.2-5.4); RED CELL DISTRIBUTION WIDTH 14.1 % (11.6-14.6); WHITE BLOOD COUNT 8.4 x1000/uL (4.5-11.0)
[2024-02-23 14:46] LABS: DIFFERENTIAL COMMENT 1
[2024-02-23 14:52] LABS: CARBON DIOXIDE 24 mEq/L (21-32); CHLORIDE 109 mEq/L (98-107); POTASSIUM 3.7 mEq/L (3.5-5.1); SODIUM 139 mEq/L (136-145)
[2024-02-23 14:53] LABS: CALCIUM 8.7 mg/dL (8.7-10.4)
[2024-02-23 14:58] LABS: CREATININE 0.8 mg/dL (0.6-1.0); GLUCOSE 96 mg/dL (70-105); UREA NITROGEN BLOOD 15 mg/dL (9-23)
[2024-02-23 14:59] LABS: TROPONIN I HIGH SENSITIVITY 4 ng/L (3.0-34)
[2024-02-23 15:08] LABS: BG BASE EXCESS -4.4 mmol/L (-2.0-3.0); BG CARBOXYHEMOGLOBIN 0.8 % (0.5-1.5); BG DEOXYHEMOGLOBIN 2.5 % (0.0-5.0); BG FRACTION INSPIRED OXYGEN 21; BG HCO3 ACT 18.8 mmol/L (21.0-28.0); BG METHEMOGLOBIN 0.2 % (0.5-1.5); BG OXYGEN SATURATION 97.5 % (94.0-98.0); BG OXYHEMOGLOBIN 96.5 % (94.0-98.0); BG PCO2 28.9 mmHg (32.0-45.0); BG PH 7.432 (7.350-7.450); BG PO2 98.4 mmHg (83.0-108.0); BG SAMPLE SITE RIGHT RADIAL; BG VENT MODE ROOM AIR
[2024-02-23] MEDS: IPRATROPIUM/ALBUTEROL 0.5-3(2.5)MG/3ML NEB HHN ONE (15:09)
[2024-02-23 15:11] VITALS: PULSE 88; RESP 16; O2SAT 92
[2024-02-23 15:11] LABS: PLATELET ESTIMATE NORMAL
[2024-02-23] MEDS: DEXAMETHASONE 4MG TABLET PO ONE (16:14)
[2024-02-23 16:57] VITALS: BP 123/67; PULSE 84; RESP 18; TEMP 36.78072; O2SAT 97
== END 2024-02-23 17:02 | disposition home or self-care (01) ==
LOC: ER 14:02
DX: J45.909 Unspecified asthma, uncomplicated (principal); J44.9 Chronic obstructive pulmonary disease, unspecified; E78.00 Pure hypercholesterolemia, unspecified; I10 Essential (primary) hypertension; Z88.0 Allergy status to penicillin; Z88.5 Allergy status to narcotic agent; Z88.2 Allergy status to sulfonamides; Z79.899 Other long term (current) drug therapy
CPT/HCPCS: 99284; 71045; 80048; 83880; 85025; 84484; 36415; 94640; 82805; 82375; 36600; J8540

== ENCOUNTER 2025-01-12 11:37 | Emergency (ER) | payer BC, MEDICAID ==
[~2025-01-12] VITALS: Ht 154.9 cm; Wt 64.0 kg
[~2025-01-12 11:37] MED LIST changes: +AMLO-905 PO; -AMLO10TA4 PO
[2025-01-12 11:44] VITALS: O2SAT 98
[2025-01-12 12:42] LABS: BASOPHILS % 1.1 % (0.0-2.0); EOSINOPHILS % 3.0 % (0.0-5.0); HEMATOCRIT. 36.0 % (36.0-48.0); HEMOGLOBIN. 11.8 g/dL (12.0-16.0); LYMPHOCYTES % 35.2 % (20.0-50.0); MEAN PLATELET VOLUME 7.5 fl (7.4-10.4); MONOCYTES % 8.5 % (2.0-8.0); NEUTROPHILS % 52.2 % (40.0-76.0); PLATELET 279 x1000/uL (130-400); RED BLOOD CELL COUNT 3.74 mill/uL (4.2-5.4); RED CELL DISTRIBUTION WIDTH 13.9 % (11.6-14.6)
[2025-01-12 13:04] LABS: CREATININE 0.9 mg/dL (0.6-1.0); TROPONIN I HIGH SENSITIVITY < 4 ng/L (3.0-34); UREA NITROGEN BLOOD 15 mg/dL (9-23)
[2025-01-12 13:06] LABS: ASPARTATE AMINOTRANSFERASE 17 IU/L (<34); BILIRUBIN DIRECT < 0.1 mg/dL (<=3.0); BILIRUBIN TOTAL 0.3 mg/dL (0.1-1.0); PROTEIN TOTAL 6.9 g/dL (6.0-8.3)
[2025-01-12] MEDS: ACETAMINOPHEN 500MG TABLET PO SCH (13:14)
[2025-01-12] MEDS ORDERED: BUDE10.26 PO (14:00)
[2025-01-12 14:33] VITALS: BP 141/69; PULSE 81; RESP 16; TEMP 37; O2SAT 98
== END 2025-01-12 14:45 | disposition home or self-care (01) ==
LOC: ER 11:37 → CANBEDREQ 14:21 → ER 14:45
DX: F41.9 Anxiety disorder, unspecified (principal); J44.1 Chronic obstructive pulmonary disease with (acute) exacerbation; E78.00 Pure hypercholesterolemia, unspecified; I10 Essential (primary) hypertension; Z76.0 Encounter for issue of repeat prescription; Z88.2 Allergy status to sulfonamides; Z88.1 Allergy status to other antibiotic agents; Z88.0 Allergy status to penicillin; Z79.899 Other long term (current) drug therapy; Z79.82 Long term (current) use of aspirin
CPT/HCPCS: 36415; 71045; 80048; 80076; 83880; 84484; 85025; 93005; 99285; A4606